=== PATIENT | female | born 1950 | race Caucasian/White ===

== ENCOUNTER 2019-06-15 20:00 | Emergency (ER) | payer MEDICARE, OTHER, SELFPAY ==
[2019-06-15 20:01] VITALS: BP 167/93; PULSE 90; RESP 18; TEMP 36.7; O2SAT 98; BMI 36.6
--- NOTE | 2019-06-15 20:21 | ED.DCSUM_ITS ---
- ER Visit Summary Date of Service: 06/15/19 Chief Complaint: Shortness of breath yesterday History of Present Illness: The patient is a 68 F past medical history of prior uterine cancer and a complete hysterectomy and cholecystectomy. She underwent chemoradiation that was about 5 to 6 years ago. Has done well since. States that she wore a mask to go to an area store yesterday. [place] a little short of breath after walking through the store with her mask on. Said she has had no recent exertional dyspnea or exertional chest pain. She might of had some mild chest discomfort yesterday. Described as a burning. No radiation to her arm neck or jaw. No diaphoresis. No history of DVT or PE. No recent travel, surgery or immobilization. No leg pain or swelling. No hemoptysis. Physical Examination: Older female no acute distress. Vital signs are stable and afebrile. Her pulse ox is 90% on room air no signs hypoxia. H EENT exam normal. Neck nontender. No JVD. No lymphadenopathy. Lungs clear to auscultation bilaterally. Heart regular rate and rhythm no murmur rate about 85. Abdomen soft nontender. Patient is moving all 4 extremities. Has a brisk radial pulse. Calves are nontender without edema or cords. Back nontender. Neurologically she is awake and alert with no focal motor deficits. Test Results: CBC normal. Chemistry normal. Troponin normal. Chest x-ray portable 1 view read by myself shows no acute abnormality. Normal cardiac silhouette. No infiltrate. No fluid. EKG normal sinus rhythm rate 84 with no acute signs of DE or ischemia. No dysrhythmia. Repeat exam patient is doing well at 9:28 PM. She has no complaints. We went over all of her test. She is comfortable being discharged and will follow-up with her primary care physician. Return if worse. Emergency Department Course and Treatment: Older female with brief shortness of breath yesterday. No exertional chest pain or exertional dyspnea recently. No fever or chills. Exam is normal. Treatment Plan: Outpatient follow-up or return if worse. Disposition: Discharge Impression: Acute dyspnea of uncertain etiology This note was generated with [employer] software. It may contain incorrect words, spelling, and punctuation that were not noted in review of the chart prior to signing ED Disposition - Plan for ED Patient: Referrals: Raymond Kurtz III, MD [Primary Care Provider] -
--- NOTE | 2019-06-15 20:21 | EKG12_ITS ---
Test Reason : SOB Blood Pressure : / mmHG Vent. Rate : 084 BPM Atrial Rate : 084 BPM P-R Int : 164 ms QRS Dur : 078 ms QT Int : 384 ms P-R-T Axes : 046 -14 036 degrees QTc Int : 453 ms Normal sinus rhythm Normal ECG Confirmed by JIM LAWLER, JORDI ([id number]), slot editor GABY FUENTES ([id number]) on 06/20/2019 2:16:22 PM Referred By: FRANCINE Confirmed By:MARIA DE JESUS FERNANDEZ MD
--- NOTE | 2019-06-15 20:45 | RAD_ITS ---
STUDY: X-RAY CHEST REASON FOR EXAM: Female, 68 years old. COUGH, SOB, AND TIRED SINCE YESTERDAY -- HX OF ENDOMETRIAL CANCER TECHNIQUE: Single frontal view of the chest. COMPARISON: July 07, 2013 FINDINGS: There is no new focal consolidation. Normal size heart. Normal mediastinum and bryan. Normal visualized pulmonary arteries. Normal visualized aortic arch and descending thoracic aorta. Normal visualized thoracic spine. Normal visualized ribs, clavicles, and shoulders. There is no demonstrated abnormality of the visualized soft tissue structures of the upper abdomen. RAD/Chest 1 View (Portable) IMPRESSION: No acute cardiopulmonary process. Electronically Signed: Jacqueline Pierce MD at 21:15 EDT Tel , Service support ,
[2019-06-15 20:46] LABS: Absolute Lymphocyte Count 0.87 X10^3/uL (0.83-4.51); Absolute Neutrophil Count 4.9 X10^3/uL (2.0-7.7); Basophil# 0.02 X10^3/uL; Basophil% 0.3 % (0-1); Eosinophil# 0.09 X10^3/uL; Eosinophils% 1.4 % (0-5); Hematocrit 39.6 % (37-47); Hemoglobin 13.3 g/dL (12.0-15.0); Lymphocyte # 0.87 X10^3/ul (4.0); Lymphocyte % 13.8 % (19-41); Mean Corp Hgb Conc 33.6 g/dL (32-36); Mean Corpuscular Hgb 29.2 pg (27.0-32.0); Mean Platelet Vol. 8.9 fl (6.2-12.0); Monocyte# 0.41 X10^3/uL; Monocyte% 6.5 % (0-10); NRBC Flagged by Analyzer 0 % (0-5); Neutrophil # 4.91 X10^3/uL (2.7-7.7); Neutrophil % 77.7 % (47-70); Platelet Count 253 K/mm3 (150-450); RBC Distribution Width CV 13.5 % (11.6-14.6); RBC Distribution Width SD 42.4 fl (35.1-43.9); Red Blood Count 4.55 M/mm3 (4.2-5.4); White Blood Count 6.3 K/mm3 (4.4-11.0)
[2019-06-15 20:47] VITALS: O2SAT 96
[2019-06-15 21:05] LABS: Anion Gap 7 (5-15); BUN 13 mg/dL (7-18); BUN/Creat Ratio 14.7 RATIO (10-20); Calcium,Total 9.3 mg/dL (8.5-10.1); Chloride 103 mmol/L (98-107); Creatinine, Serum 0.88 mg/dL (0.55-1.02); EST Glomerular Filtration Rate 68 mL/min (>60); Est Glom Filt Rate - Afr Amer 82 mL/min (>60); Estimated Creatinine Clearance 49.06 ml/min; Glucose 106 mg/dL (74-106); Potassium 3.6 mmol/L (3.5-5.1); Sodium Level 139 mmol/L (136-145)
--- NOTE | 2019-06-15 21:30 | ED.DEP ---
ED Disposition - Plan for ED Patient: Disposition: Home or Assisted Living Instructions: ED Dyspnea Referrals: Raymond Kurtz III, MD [Primary Care Provider] - 1 Week Additional Instructions: Return if you are feeling worse. All your tests were normal including blood work, blood count, chemistries, heart enzymes. Also your chest x-ray and EKG were normal. Follow-up with your primary care physician if you still have symptoms of shortness of breath or not feeling your baseline.
[2019-06-15 21:43] VITALS: BP 145/81; PULSE 78; RESP 16; O2SAT 96
== END 2019-06-15 21:43 | disposition home or self-care (01) ==
PROVIDERS: Emergency Provider Emergency Medicine; PCP Family Medicine
DX: R06.00 Dyspnea, unspecified (principal); Z85.42 Personal history of malignant neoplasm of other parts of uterus
CPT/HCPCS: 71045; 80048; 84484; 85025; 93005; 99284

== ENCOUNTER → 2020-08-01 11:57 | Outpatient (CLI) | payer MEDICARE, OTHER, SELFPAY ==
[2020-08-01 11:00] VITALS: BMI 37.5
[2020-08-01 12:37] LABS: Absolute Neutrophil Count 3.6 X10^3/uL (2.0-7.7); Basophil# 0.04 X10^3/uL; Basophil% 0.8 % (0-1); Eosinophil# 0.12 X10^3/uL; Eosinophils% 2.5 % (0-5); Lymphocyte % 16.4 % (19-41); Mean Corp Hgb Conc 33.3 g/dL (32-36); Mean Corpuscular Volume 86.9 fL (81-99); Monocyte% 6.1 % (0-10); NRBC Flagged by Analyzer 0 % (0-5); Neutrophil % 73.8 % (47-70); Platelet Count 257 K/mm3 (150-450); RBC Distribution Width CV 13.8 % (11.6-14.6); RBC Distribution Width SD 43.7 fl (35.1-43.9); Red Blood Count 4.49 M/mm3 (4.2-5.4); White Blood Count 4.9 K/mm3 (4.4-11.0)
[2020-08-01 13:10] LABS: ALB/GLOB Ratio 1.2 RATIO (0.9-2.4); AST(SGOT) 28 U/L (15-37); Alanine Aminotransfer ALT/SGPT 41 U/L (13-56); Alkaline Phosphatase 71 U/L (45-117); Anion Gap 6 (5-15); BUN 17 mg/dL (7-18); BUN/Creat Ratio 18.7 RATIO (10-20); Bilirubin, Direct 0.14 mg/dL (0.00-0.30); Calcium,Total 9.1 mg/dL (8.5-10.1); Chloride 104 mmol/L (98-107); Cholesterol 227 mg/dL (200); Creatinine, Serum 0.91 mg/dL (0.55-1.02); EST Glomerular Filtration Rate 65 mL/min (>60); Est Glom Filt Rate - Afr Amer 79 mL/min (>60); Globulin 3.2 g/dL (2.2-4.2); Glucose 101 mg/dL (74-106); High Density Lipoprotein 64 mg/dL; Magnesium 2.2 mg/dL (1.6-2.6); Potassium 3.9 mmol/L (3.5-5.1); Protein, Total 7.2 g/dL (6.4-8.2); Sodium Level 140 mmol/L (136-145); Thyroid Stim Hormone (TSH) 2.48 uIU/mL (0.358-3.74); Triglycerides 121 mg/dL; Very Low Density Lipoprotein 24 mg/dL (5-40)
== END ==
PROVIDERS: PCP Family Medicine; Referring Provider Internal Medicine Cardiovascular Disease; Visit Provider Internal Medicine Cardiovascular Disease
DX: C54.1 Malignant neoplasm of endometrium (principal); I49.1 Atrial premature depolarization; I49.3 Ventricular premature depolarization; R07.9 Chest pain, unspecified
CPT/HCPCS: 36415; 80053; 80061; 82248; 83735; 84443; 85025

== ENCOUNTER → 2020-09-03 07:14 | Outpatient (CLI) | payer MEDICARE, OTHER, SELFPAY ==
[2020-08-01 11:00] VITALS: BMI 37.5
--- NOTE | 2020-09-03 07:16 | ECHOD_ITS ---
Reason For Study: AFIB, CHEST PAIN Procedure This was a 2D Doppler, Color Flow transthoracic echocardiogram. The study was technically difficult. Exam performed in department. Left Ventricle Normal LV size. Left ventricular systolic function is normal. The estimated ejection fraction is 55 %. No evidence for diastolic dysfunction. No regional wall motion abnormalities noted. Right Ventricle Normal RV size. Normal systolic function. Atria Normal left atrium. Normal right atrium. No doppler evidence for ASD. Mitral Valve There is no mitral annular calcification. Normal mitral valve. Trivial mitral valve insufficiency. Tricuspid Valve Normal tricuspid valve. Trivial tricuspid valve insufficiency. Right ventricular systolic pressure estimated to be 29 mmHg. Aortic Valve Trisinus/trileaflet aortic valve. Normal aortic valve. Pulmonic Valve The pulmonic valve is not well visualized. Trivial pulmonic valve insufficiency. Great Vessels Normal sized aortic root. Pericardium/Pleural No pericardial effusion. MMode/2D Measurements & Calculations LVIDd: 4.3 cm IVSd: 0.95 cm Ao root diam: 3.4 cm LVIDs: 2.8 cm LVPWd: 0.94 cm FS: 36.3 % LAV(MOD-bp): 37.9 ml LVAd ap4: 20.8 cm2 LVAd ap2: 25.8 cm2 LAV(MOD-bp) Indexed: 19.8 ml/m2 LVLd ap4: 7.2 cm LVLd ap2: 8.2 cm LAV(MOD-sp2): 37.4 ml EDV(MOD-sp4): 48.8 ml EDV(MOD-sp2): 67.2 ml LAV(MOD-sp4): 36.7 ml EDV(sp4-el): 50.7 ml EDV(sp2-el): 68.6 ml LVAs ap4: 13.5 cm2 LVAs ap2: 14.5 cm2 LVLs ap4: 6.2 cm LVLs ap2: 6.6 cm ESV(MOD-sp4): 24.6 ml ESV(MOD-sp2): 27.5 ml ESV(sp4-el): 25.0 ml ESV(sp2-el): 27.2 ml EF(MOD-sp4): 49.5 % EF(MOD-sp2): 59.1 % EF(sp4-el): 50.7 % SV(MOD-sp4): 24.1 ml SV(MOD-sp2): 39.7 ml SV(sp4-el): 25.7 ml LA dimension(2D): 2.9 cm LA A4 area: 14.8 cm2 RA A4 area: 9.8 cm2 Time Measurements MV dec time: 0.32 sec Doppler Measurements & Calculations MV E max efren: 75.6 cm/sec Lat Peak E' Efren: 8.5 cm/sec Med Peak E' Efren: 6.5 cm/sec MV A max efren: 109.6 cm/sec E/E' lat: 8.9 E/E' med: 11.6 MV E/A: 0.69 Ao V2 max: 121.4 cm/sec LV V1 max: 100.0 cm/sec TR max efren: 253.0 cm/sec Ao max P.9 mmHg LV V1 max P.0 mmHg TR max P.6 mmHg ECHO/Echo Complete Interpretation Summary The study was technically difficult. Left ventricular systolic function is normal. The estimated ejection fraction is 55 %. Trivial mitral valve insufficiency. Trivial tricuspid valve insufficiency. Trivial pulmonic valve insufficiency. Right ventricular systolic pressure estimated to be 29 mmHg. No evidence for diastolic dysfunction. Ordering Physician: Scotty Grant Referring Physician: RIZWANA MARY III Performed By: June Marcano, RDHOLLIE, RVT
--- NOTE | 2020-09-03 13:14 | STRESSREP ---
Stress Test Report Date: 09-03-2020 Procedure: Pharmacologic stress nuclear imaging study Indications: Chest pain; cardiac ectopy; PACs/PVCs Consent: Per the patient Procedure: The patient underwent pharmacologic (Regadenoson 0.4mg ) evaluation with a peak heart rate of 130 beats per minute (85%predicted maximal heart rate) and a peak blood pressure of 148/90 mmHg. The baseline ECG demonstrated sinus rhythm; low voltage QRS; ventricular couplet. The peak pharmacologic ECG demonstrated no obvious ECG changes. There were occasional PVCs/ventricular couplets pretest, during infusion, and recovery. There was no complaint of chest discomfort during pharmacologic infusion or recovery. The examination was discontinued secondary to completion of protocol. Impression: 1. Pharmacologic (Regadenoson) evaluation 2. Peak pharmacologic ECG with no obvious ECG changes. 3. There were no cardiac dysrhythmias pretest, during pharmacologic infusion, or recovery. 4. Nuclear images pending Myocardial perfusion imaging study: Technique: The patient was injected with 14.0 millicuries of technetium 99m Cardiolite and subsequently rest SPECT Cardiolite nuclear imaging was obtained in the horizontal long, vertical long, and short axis views. The patient underwent pharmacologic (Regadenoson) evaluation with a peak heart rate of 130 beats per minute (85% percent predicted maximal heart rate) and a peak blood pressure of 148/9 mmHg. The patient was injected with 42.0 millicuries of technetium 99m Cardiolite and subsequently stress SPECT Cardiolite nuclear imaging was obtained in the horizontal long, vertical long, and short axis views. A gated Cardiolite study at peak stress was obtained. Interpretation: Rest and stress SPECT Cardiolite nuclear imaging status post realignment, normalization, and attenuation correction demonstrate the appearance of body motion during image acquisition and status post stress the appearance of diminished myocardial perfusion/tracer uptake in portions of the basal towards distal anterior segments. There is end systolic thickening and brightening. The gated Cardiolite study demonstrates myocardial thickening and inward wall motion. The reported LVEF is 66%. Impression: 1. Rest and stress SPECT cardiac nuclear imaging demonstrate body motion during image acquisition and post-rest myocardial perfusion images demonstrating diminished myocardial perfusion/tracer uptake in portions of the basal towards distal anterior segments concerning for an area of stress-induced myocardial ischemia, although, shifting soft tissue attenuation/artifact from body motion during image acquisition cannot necessarily be excluded. 2. The gated Cardiolite study reports an LVEF of 66%. This note was generated with [employer] software. It may contain incorrect words, spelling, and punctuation that were not noted in checking the note before signing.
== END ==
PROVIDERS: PCP Family Medicine; Referring Provider Internal Medicine Cardiovascular Disease; Visit Provider Internal Medicine Cardiovascular Disease
DX: I49.3 Ventricular premature depolarization (principal); I49.1 Atrial premature depolarization; R07.9 Chest pain, unspecified; R07.2 Precordial pain; R94.31 Abnormal electrocardiogram [ECG] [EKG]
CPT/HCPCS: 78452; 93017; 93225; 93226; 93306; A9500; A4216; J2785

== ENCOUNTER 2020-12-03 09:35 | Emergency (ER) | payer MEDICARE, OTHER, SELFPAY ==
[2020-12-03 09:36] VITALS: BP 144/85; PULSE 91; RESP 24; TEMP 36.9; O2SAT 89; BMI 34.4
--- NOTE | 2020-12-03 09:50 | EKG12_ITS ---
Test Reason : SOB Blood Pressure : / mmHG Vent. Rate : 082 BPM Atrial Rate : 082 BPM P-R Int : 158 ms QRS Dur : 078 ms QT Int : 394 ms P-R-T Axes : 024 -17 046 degrees QTc Int : 460 ms Sinus rhythm with marked sinus arrhythmia with occasional Premature ventricular complexes Otherwise normal ECG Confirmed by VIJAYA LAWLER, JERAD ([id number]), news assignment editor LAURA MERIDA ([id number]) on 12/06/2020 10:03:48 AM Referred By: ETHAN Confirmed By:JERAD LILLY MD
--- NOTE | 2020-12-03 09:50 | RAD_ITS ---
STUDY: X-RAY CHEST REASON FOR EXAM: Female, 70 years old. Shortness of breath. TECHNIQUE: Single AP portable view of the chest. COMPARISON: Comparison is made with prior study dated 06/15/2019. FINDINGS: EKG electrodes are seen. Patchy alveolar infiltrates in both lung bases in the parapharyngeal peripheral distribution. This is suggestive of Covid pneumonitis. There is no demonstrated pleural abnormality. Normal size heart. Normal mediastinum and bryan. Normal visualized pulmonary arteries. Normal visualized aortic arch and descending thoracic aorta. Normal visualized thoracic spine. Normal visualized ribs, clavicles, and shoulders. There is no demonstrated abnormality of the visualized soft tissue structures of the upper abdomen. RAD/Chest 1 View (Portable) IMPRESSION: Patchy bilateral alveolar infiltrates in the preferential peripheral distribution. Pneumonitis secondary to Covid should be ruled out. Electronically Signed: Cesar Art MD at 11:18 EDT , Service support ,
--- NOTE | 2020-12-03 09:51 | EDS_ITS ---
HPI History of Present Illness Chief Complaint: Shortness of Breath Informant: patient Onset/Context/Timing Onset: Weeks (1 week) Context: Gradual Onset Timing: Waxes and wanes Current Severity: Moderate Maximum Severity: Moderate Narrative Narrative: Patient presents with 1 week of nausea, vomiting, headache, body ach es, cough. Patient does report intermittent fevers. Her granddaughter who lives with her does have Covid. Patient did not receive the Covid vaccine. She complains of chest pain which she believes is secondary to coughing. No underlying lung disease. [facility] Medical History Abnormal stress test Chest pain Endometrial cancer PAC (premature atrial contraction) Premature ventricular contraction Pure hypercholesterolemia Home Medications cyanocobalamin (vitamin B-12) 1,000 mcg/15 mL oral liquid 1,000 mcg PO DAILY 07/30/20 [History Last Taken Unknown] garlic 1,000 mg capsule 1,000 mg PO DAILY PRN cap 07/30/20 [History Last Taken Unknown] multivitamin 1 tab PO DAILY 07/30/20 [History Last Taken Unknown] coenzyme Q10 100 mg capsule 100 mg PO DAILY 08/01/20 [History Last Taken Unknown] ascorbate calcium-bioflavonoid 1,000 mg-200 mg tablet tab PO PRN 09/12/20 [History Last Taken Unknown] aspirin 81 mg tablet,delayed release 81 mg PO DAILY 09/12/20 [History Last Taken Unknown] dexamethasone [Decadron] 6 mg PO DAILY #9 tab 12/03/20 [Rx Last Taken Unknown] ondansetron 4 mg PO Q8H PRN #10 tab 12/03/20 [Rx Last Taken Unknown] Allergy/AdvReac Type Severity Reaction Status Date / Time ciprofloxacin [From Cipro] Allergy Intermediate Other Verified 12/03/20 09:40 diazepam [From Valium] AdvReac Other Verified 12/03/20 09:40 Family History Father CVA (cerebral vascular accident) Heart disease Grandfather Myocardial infarction Heart disease Diabetes Sister Cancer Breast Cancer Surgical History History of bilateral cataract extraction History of cholecystectomy History of total hysterectomy History of tubal ligation Social History Smoking Status: Never smoker alcohol intake: never substance use type: does not use caffeine: Yes Type: coffee Number of servings: 2 ROS ROS ED Constitutional Constitutional ED: Reports chills and fever(s) Eyes Eyes: Denies change in vision ENT ENT ED: Denies sore throat Cardiovascular Cardiovascular: Reports chest pain Respiratory/Chest Respiratory/Chest: Reports cough and dyspnea; Denies sputum Gastrointestinal Gastrointestinal: Reports nausea and vomiting; Denies abdominal pain or diarrhea Genitourinary Genitourinary ED: Denies dysuria Musculoskeletal Musculoskeletal: Reports myalgias; Denies back pain Integumentary Denies rash Neurologic Neurologic: Reports headache(s) and weakness Psychiatric Psychiatric: Denies anxiety or depression Endocrine Endocrinology: Reports polydipsia; Denies polyuria Allergic/Immunologic Allergic/Immunologic ED: Denies urticaria EXAM Physical Exam Const Vital Signs: 12/03/20 09:36 12/03/20 10:07 12/03/20 10:08 Temperature 98.5 F 98.5 F Temperature Source Oral Oral Pulse Rate 91 91 Respiratory Rate 24 H 24 H Respiratory Effort Short of Breath Labored Blood Pressure 144/85 H 144/85 H Blood Pressure Mean 104 104 Pulse Ox 89 89 Oxygen Delivery Method Room Air Room Air 12/03/20 11:28 Temperature Temperature Source Pulse Rate Respiratory Rate Respiratory Effort Blood Pressure Blood Pressure Mean Pulse Ox 90 Oxygen Delivery Method Room Air Positive well nourished and well developed General Appearance ED: well developed HEENT Reports normocephalic and head/scalp atraumatic Eyes PERRL and EOMs intact bilaterally Neck supple Chest Wall inspection of chest normal and palpation of chest normal Resp normal respiratory effort and clear to auscultation bilaterally Cardio regular rate and regular rhythm GI normal to inspection, nondistended, normoactive bowel sounds and non-tender Palpation: soft Extremity normal to inspection Neuro oriented x3 Neuro Narrative: Generalized weakness. No focal neurologic deficits. Sensorium / Orientation: alert Psych mental status grossly normal Skin no rashes or lesions noted MDM MDM MDM Narrative Medical decision making narrative: Lab work, EKG, chest x-ray, Covid test obtained. Lab Data Attestation: I reviewed the patient's lab results. Labs: Laboratory Results - last 24 hr 12/03/20 12/03/20 12/03/20 10:25 10:25 10:25 WBC 4.3 L RBC 4.55 Hgb 13.1 Hct 37.3 MCV 82.0 MCH 28.8 MCHC 35.1 RDW Std Deviation 42.3 RDW Coeff of Thomas 14.1 Plt Count 201 MPV 9.1 Immature Gran % (Auto) 0.700 Neut % (Auto) 85.6 H Lymph % (Auto) 7.9 L [place] % (Auto) 5.8 Eos % (Auto) 0.0 Baso % (Auto) 0.0 Absolute Neuts (auto) 3.7 Absolute Lymphs (auto) 0.34 L Nucleated RBC % 0 Differential Comment COMMENT Diff Path Review May foll D-Dimer Quant (PE/DVT) Sodium 132 L Potassium 3.3 L Chloride 99 Carbon Dioxide 25.0 Anion Gap 8 BUN 13 Creatinine 0.74 Estim Creat Clear Calc 41.99 Est GFR (MDRD) Af Amer 101 Est GFR (MDRD) Non-Af 83 BUN/Creatinine Ratio 17.7 Glucose 112 H Lactic Acid 0.9 Calcium 8.4 L Total Bilirubin 0.50 AST 40 H ALT 43 Alkaline Phosphatase 70 Total Protein 7.0 Albumin 3.2 Globulin 3.8 Albumin/Globulin Ratio 0.8 L 12/03/20 10:25 WBC RBC Hgb Hct MCV MCH MCHC RDW Std Deviation RDW Coeff of Thomas Plt Count MPV Immature Gran % (Auto) Neut % (Auto) Lymph % (Auto) [place] % (Auto) Eos % (Auto) Baso % (Auto) Absolute Neuts (auto) Absolute Lymphs (auto) Nucleated RBC % Differential Comment Diff Path Review D-Dimer Quant (PE/DVT) 0.44 Sodium Potassium Chloride Carbon Dioxide Anion Gap BUN Creatinine Estim Creat Clear Calc Est GFR (MDRD) Af Amer Est GFR (MDRD) Non-Af BUN/Creatinine Ratio Glucose Lactic Acid Calcium Total Bilirubin AST ALT Alkaline Phosphatase Total Protein Albumin Globulin Albumin/Globulin Ratio Radiography Chest X-Ray - ED: 1 View, Read by ED Physician, Right Infiltrate and Left Infiltrate Diagnostic Testing: Radiology Impression Chest X-Ray 12/03/20 09:50 IMPRESSION: Patchy bilateral alveolar infiltrates in the preferential peripheral distribution. Pneumonitis secondary to Covid should be ruled out. Electronically Signed: Cesar Art MD at 11:18 EDT , Service support , EKG Initial EKG: Attestation: I personally reviewed and interpreted this EKG as follows: Interpretation: Sinus Rhythm (Sinus 82 with no acute ischemia) Treatment and Re-Evaluation Comments:: Although patient's O2 sat is documented to 89% in triage she was 93% at the time of my exam on room air. Lab work is largely unremarkable. Covid test is positive. Chest x-ray per my interpretation shows patchy bilateral infiltrates along the periphery consistent with Covid. Radiologist rotation is reviewed. On repeat evaluation patient does feel improved after a small IV fluid bolus and Zofran. She will be treated with Decadron. We did walk her in the department and her O2 sat went from 95 to 91%. At this time she does not qualify for home O2. We did discuss obtaining a pulse ox meter so she can observe this at home. She will be given a prescription for Decadron and Zofran. Discharge Plan Triage Chief Complaint: Shortness of Breath ED Provider: Celia Bateman Dx/Rx/DC Orders Clinical Impression: COVID-19 Instructions: Coronavirus Disease 2019 (COVID-19): Overview, Coronavirus Disease 2019 (COVID-19): Caring for Yourself or Others Prescriptions: New ondansetron 4 mg tablet,disintegrating 4 mg PO Q8H PRN (Reason: nausea and vomiting) Qty: 10 RF: 0 dexamethasone [Decadron] 6 mg tablet 6 mg PO DAILY Qty: 9 RF: 0 No Action coenzyme Q10 100 mg capsule 100 mg PO DAILY RF: 0 Mag-C with Bioflavonoids 1,000-200 mg tablet PO PRNRF: 0 aspirin [Adult Aspirin Regimen] 81 mg tablet,delayed release (DR/EC) 81 mg PO DAILY RF: 0 cyanocobalamin (vitamin B-12) 1,000 mcg/15 mL liquid 1,000 mcg PO DAILY RF: 0 garlic 1,000 mg capsule 1,000 mg PO DAILY PRNRF: 0 multivitamin Tablet 1 tab PO DAILY RF: 0 Primary Care Provider: Care Physician,No Primary Referrals: Franco Sue MD [STAFF PHYSICIAN] - 1-2 Weeks Care Physician,No Primary [Primary Care Provider] - Disposition Disposition: Home, Self Care
[2020-12-03 10:08] VITALS: BP 144/85; PULSE 91; RESP 24; TEMP 36.9; O2SAT 89
[2020-12-03] MEDS: Ondansetron 4 MG/2 ML Vial IV (10:26)
[2020-12-03] MEDS: Ketorolac 15 MG/ML Vial IV (10:26)
[2020-12-03 10:53] LABS: Absolute Lymphocyte Count 0.34 X10^3/uL (0.83-4.51); Absolute Neutrophil Count 3.7 X10^3/uL (2.0-7.7); Hematocrit 37.3 % (37-47); Hemoglobin 13.1 g/dL (12.0-15.0); Lymphocyte # 0.34 X10^3/ul (0.83-4.51); Lymphocyte % 7.9 % (19-41); Mean Corp Hgb Conc 35.1 g/dL (32-36); Mean Corpuscular Hgb 28.8 pg (27.0-32.0); Mean Platelet Vol. 9.1 fl (6.2-12.0); Monocyte# 0.25 X10^3/uL; Monocyte% 5.8 % (0-10); NRBC Flagged by Analyzer 0 % (0-5); Neutrophil # 3.71 X10^3/uL (2.7-7.7); Neutrophil % 85.6 % (47-70); POSITIVE DIFFERENTIAL YES; Platelet Count 201 K/mm3 (150-450); RBC Distribution Width CV 14.1 % (11.6-14.6); RBC Distribution Width SD 42.3 fl (35.1-43.9); Red Blood Count 4.55 M/mm3 (4.2-5.4); White Blood Count 4.3 K/mm3 (4.4-11.0)
[2020-12-03 10:54] LABS: D-Dimer Quantitative (DVT/PE) 0.44 FEU/ug/m (0.27-0.49)
[2020-12-03 10:55] LABS: Differential Indicated SCAN CRITERIA MET
[2020-12-03 11:10] LABS: ALB/GLOB Ratio 0.8 RATIO (0.9-2.4); AST(SGOT) 40 U/L (15-37); Alanine Aminotransfer ALT/SGPT 43 U/L (13-56); Albumin, Serum 3.2 g/dL (3.2-5.0); Alkaline Phosphatase 70 U/L (45-117); Anion Gap 8 (5-15); BUN 13 mg/dL (7-18); BUN/Creat Ratio 17.7 RATIO (10-20); Calcium,Total 8.4 mg/dL (8.5-10.1); Chloride 99 mmol/L (98-107); Creatinine, Serum 0.74 mg/dL (0.55-1.02); EST Glomerular Filtration Rate 83 mL/min (>60); Est Glom Filt Rate - Afr Amer 101 mL/min (>60); Estimated Creatinine Clearance 41.99 ml/min; Globulin 3.8 g/dL (2.2-4.2); Glucose 112 mg/dL (74-106); Potassium 3.3 mmol/L (3.5-5.1); Sodium Level 132 mmol/L (136-145)
[2020-12-03 11:17] LABS: Lactic Acid 0.9 mmol/L (0.4-1.9)
[2020-12-03 11:28] VITALS: O2SAT 90
[2020-12-03] MEDS: dexAMETHasone 4 MG/ML Vial 6 MG IV (11:32)
[2020-12-03 11:35] VITALS: O2SAT 95
[2020-12-03 12:09] VITALS: BP 128/72; PULSE 71; RESP 18; O2SAT 93
--- NOTE | 2020-12-03 15:12 | CHAPLAIN ---
Type of Pastoral Visit _x__ Initial Visit ___ Follow-up Visit ___ On-call Visit ___ General Patient Visit ___ Spiritual Assessment ___ Family Conference ___ Bereavement ___ Rapid Response ___ Code Blue ___ Other (describe below) Pastoral Care Referral From _x__ Patient ___ Family ___ Nurse ___ Physician ___ Netting Weaver ___ Aviation Electronics Technician ___ Other (describe below) Sacrament/Intervention _x__ Active listening ___ Anointing ___ Druze ___ Bereavement ___ Communion ___ Shari exploration ___ ___ Life review _x__ Prayer ___ Reconciliation ___ Sacrament of Sick _x__ Supportive presence ___ Wedding ___ Other (describe below) Pastoral Comments 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
[2020-12-04 12:46] LABS: Pathologist Review Reviewed
== END 2020-12-03 12:10 | disposition home or self-care (01) ==
PROVIDERS: Emergency Provider Emergency Medicine
DX: U07.1 COVID-19 (principal)
CPT/HCPCS: 71045; 80053; 83605; 85025; 85379; 87040; 87426; 93005; 96374; 96375; 99285; J7030; A4216; J2405

== ENCOUNTER 2020-12-06 10:13 | Inpatient (IN) | payer MEDICARE, OTHER, SELFPAY ==
[2020-12-06] VITALS (11 sets, daily range): BP systolic 108–153; BP diastolic 62–84; PULSE 69–94; RESP 18–26; TEMP 36.2–37.2; O2SAT 87–96; BMI 34.9; BMI 35.3
--- NOTE | 2020-12-06 10:57 | EKG12_ITS ---
Test Reason : SOB Blood Pressure : / mmHG Vent. Rate : 087 BPM Atrial Rate : 087 BPM P-R Int : 146 ms QRS Dur : 076 ms QT Int : 376 ms P-R-T Axes : 026 -08 036 degrees QTc Int : 452 ms Normal sinus rhythm Normal ECG Confirmed by VIJAYA LAWLER, JERAD ([id number]), editor in chief newspaper LAURA MERIDA ([id number]) on 12/09/2020 11:41:11 AM Referred By: AMADA/AVINASH Confirmed By:JERAD LILLY MD
--- NOTE | 2020-12-06 10:59 | ED.VIS.DYS ---
HPI History of Present Illness Chief Complaint: Shortness of Breath Informant: patient Onset/Context/Timing Onset: Weeks (1) Context: gradual Timing: Continuous Quality: Positive for Dyspnea on exertion Worsened by: Exertion Relieved by: Rest Associated Symptoms cough, fever, sore throat, subjective and chills; Negative for rhinorrhea or ear pain Narrative Narrative: Patient presents with shortness of breath that has been getting worse over the past week. Patient was diagnosed with COVID-19 approximately 3 days ago. Patient states her breathing is gradually getting worse. Patient states her breathing is worse with any exertion. Patient states it is better with rest. Patient states she is coughing up some white sputum occasionally. Patient also admits to a sore throat due to the cough. Patient admits to subjective fevers and chills. Patient also admits to some dull pain in her lower chest that is worse with coughing. Patient also admits to headache and myalgias. Patient admits to nausea but denies any vomiting. [facility] Medical History Abnormal stress test Chest pain Endometrial cancer PAC (premature atrial contraction) Premature ventricular contraction Pure hypercholesterolemia Home Medications cyanocobalamin (vitamin B-12) 1,000 mcg/15 mL oral liquid 1,000 mcg PO DAILY 07/30/20 [History Last Taken Unknown] garlic 1,000 mg capsule 1,000 mg PO DAILY cap 07/30/20 [History Last Taken Unknown] multivitamin 1 tab PO DAILY 07/30/20 [History Last Taken Unknown] coenzyme Q10 100 mg capsule 100 mg PO DAILY 08/01/20 [History Last Taken Unknown] ascorbate calcium-bioflavonoid 1,000 mg-200 mg tablet 1 tab PO DAILY 09/12/20 [History Last Taken Unknown] dexamethasone [Decadron] 6 mg PO DAILY #9 tab 12/03/20 [Rx Last Taken Unknown] ondansetron 4 mg PO Q8H PRN #10 tab 12/03/20 [Rx Last Taken Unknown] Allergy/AdvReac Type Severity Reaction Status Date / Time ciprofloxacin [From Cipro] Allergy Intermediate Other Verified 12/06/20 10:15 diazepam [From Valium] AdvReac Other Verified 12/06/20 10:15 Family History Father CVA (cerebral vascular accident) Heart disease Grandfather Myocardial infarction Heart disease Diabetes Sister Cancer Breast Cancer Surgical History History of bilateral cataract extraction History of cholecystectomy History of total hysterectomy History of tubal ligation Social History Smoking Status: Never smoker alcohol intake: never substance use type: does not use caffeine: Yes Type: coffee Number of servings: 2 ROS ROS ED Constitutional Constitutional ED: Reports chills and fever(s) Eyes Eyes: Denies blurry vision or change in vision ENT ENT ED: Denies rhinorrhea or sore throat Cardiovascular Cardiovascular: Reports chest pain; Denies palpitations Respiratory/Chest Respiratory/Chest: Reports cough and dyspnea Gastrointestinal Gastrointestinal: Denies nausea or vomiting Genitourinary Genitourinary ED: Denies dysuria or hematuria Musculoskeletal Musculoskeletal: Reports back pain, myalgias and neck pain Integumentary Denies abscess or rash Neurologic Neurologic: Reports headache(s); Denies weakness Allergic/Immunologic Allergic/Immunologic ED: Denies mouth swelling or urticaria EXAM Physical Exam Const Vital Signs: 12/06/20 10:16 12/06/20 10:27 12/06/20 11:03 Temperature 99 F 99.0 F Temperature Source Temporal Temporal Pulse Rate 87 93 87 Respiratory Rate 22 H 22 H 26 H Respiratory Effort Respiratory Depth Respiratory Pattern Blood Pressure 131/79 H 131/79 H Blood Pressure Mean 96 96 Pulse Ox 93 96 96 Oxygen Delivery Method Room Air Nasal Cannula Nasal Cannula Oxygen Flow Rate (L/min) 4 3 12/06/20 11:04 12/06/20 12:15 12/06/20 12:42 Temperature 97.8 F Temperature Source Oral Pulse Rate 94 Respiratory Rate 25 H Respiratory Effort Short of Breath Labored Respiratory Depth Normal Respiratory Pattern Tachypnea Blood Pressure 108/62 Blood Pressure Mean 77 Pulse Ox 94 96 Oxygen Delivery Method Nasal Cannula Nasal Cannula Nasal Cannula Oxygen Flow Rate (L/min) 3 3 4 Positive well nourished and well developed General Appearance ED: well developed HEENT Reports moist mucous membranes Neck supple and no JVD Resp normal respiratory effort Auscultation: diminished lung sounds diffuse Cardio regular rate, regular rhythm and no murmurs GI normal to inspection, nondistended, normoactive bowel sounds and non-tender Palpation: soft Extremity normal to inspection General Extremety ED: Negative for edema or tenderness General Extremity: Negative for edema Neuro oriented x3, CN's II-XII intact bilaterally and no sensory deficits noted Sensorium / Orientation: alert Motor Exam: strength 5/5 throughout Psych mental status grossly normal Skin no rashes or lesions noted MDM MDM MDM Narrative Medical decision making narrative: Patient was started on oxygen by nasal cannula. CBC and comprehensive metabolic profile were obtained and were essentially within normal limits. Lactate was normal. High-sensitivity troponin was normal. Portable 1 view chest x-ray was obtained. On my interpretation, lung martin show worsening lower lobe infiltrates, worse on the left. There is normal cardiac silhouette. Bony thorax is normal. Radiologist also interpreted the x-ray and agrees. Patient was given a dose of Decadron here. Case was discussed with the hospitalist. He will admit the patient to his service. Patient understood and was agreeable with the plan. All questions were answered. Lab Data Attestation: I reviewed the patient's lab results. Labs: Laboratory Results - last 24 hr 12/06/20 12/06/20 12/06/20 11:11 11:11 11:11 WBC 9.8 RBC 4.22 Hgb 12.2 Hct 34.6 L MCV 82.0 MCH 28.9 MCHC 35.3 RDW Std Deviation 41.7 RDW Coeff of Thomas 14.1 Plt Count 258 MPV 9.0 Immature Gran % (Auto) 0.600 Neut % (Auto) 93.8 H Lymph % (Auto) 3.[address] % (Auto) 2.1 Eos % (Auto) 0.0 Baso % (Auto) 0.1 Absolute Neuts (auto) 9.2 H Absolute Lymphs (auto) 0.33 L Nucleated RBC % 0 Differential Comment COMMENT Fibrinogen D-Dimer Quant (PE/DVT) Sodium 131 L Potassium 3.6 Chloride 97 L Carbon Dioxide 29.0 Anion Gap 5 BUN 14 Creatinine 0.72 Estim Creat Clear Calc 40.07 Est GFR (MDRD) Af Amer 103 Est GFR (MDRD) Non-Af 85 BUN/Creatinine Ratio 19.4 Glucose 133 H Lactic Acid 1.5 Calcium 8.7 Magnesium Total Bilirubin 0.70 AST 37 ALT 43 Alkaline Phosphatase 62 Lactate Dehydrogenase Total Creatine Kinase Troponin I High Sens 12 C-React Prot Ext Range Total Protein 6.6 Albumin 2.7 L Globulin 3.9 Albumin/Globulin Ratio 0.7 L Procalcitonin 12/06/20 12/06/20 12/06/20 11:11 11:11 11:11 WBC RBC Hgb Hct MCV MCH MCHC RDW Std Deviation RDW Coeff of Thomas Plt Count MPV Immature Gran % (Auto) Neut % (Auto) Lymph % (Auto) [place] % (Auto) Eos % (Auto) Baso % (Auto) Absolute Neuts (auto) Absolute Lymphs (auto) Nucleated RBC % Differential Comment Fibrinogen 665 H D-Dimer Quant (PE/DVT) 0.75 H* Sodium Potassium Chloride Carbon Dioxide Anion Gap BUN Creatinine Estim Creat Clear Calc Est GFR (MDRD) Af Amer Est GFR (MDRD) Non-Af BUN/Creatinine Ratio Glucose Lactic Acid Calcium Magnesium 1.9 Total Bilirubin AST ALT Alkaline Phosphatase Lactate Dehydrogenase 337 H Total Creatine Kinase 133 Troponin I High Sens C-React Prot Ext Range 86.10 H Total Protein Albumin Globulin Albumin/Globulin Ratio Procalcitonin 12/06/20 11:11 WBC RBC Hgb Hct MCV MCH MCHC RDW Std Deviation RDW Coeff of Thomas Plt Count MPV Immature Gran % (Auto) Neut % (Auto) Lymph % (Auto) [place] % (Auto) Eos % (Auto) Baso % (Auto) Absolute Neuts (auto) Absolute Lymphs (auto) Nucleated RBC % Differential Comment Fibrinogen D-Dimer Quant (PE/DVT) Sodium Potassium Chloride Carbon Dioxide Anion Gap BUN Creatinine Estim Creat Clear Calc Est GFR (MDRD) Af Amer Est GFR (MDRD) Non-Af BUN/Creatinine Ratio Glucose Lactic Acid Calcium Magnesium Total Bilirubin AST ALT Alkaline Phosphatase Lactate Dehydrogenase Total Creatine Kinase Troponin I High Sens C-React Prot Ext Range Total Protein Albumin Globulin Albumin/Globulin Ratio Procalcitonin 0.08 Radiography Chest X-Ray - ED: 1 View, Read by ED Physician, Read by Radiologist, Right Infiltrate and Left Infiltrate Diagnostic Testing: Radiology Impression Chest X-Ray 12/06/20 11:13 IMPRESSION: Progressive bilateral pulmonary infiltrates worse in the left lung. Electronically Signed: Cesar Art MD at 11:27 EDT , Service support , Treatment and Re-Evaluation Vital Sign Attestation:: Vital signs were reviewed prior to admission. They are stable. Discharge Plan Dx/Rx/DC Orders Clinical Impression: Pneumonia due to COVID-19 virus, Hypoxia Disposition Disposition: Acute Care Hospital [facility] Discharge Date/Time: 12/06/20 15:03
--- NOTE | 2020-12-06 11:13 | RAD_ITS ---
STUDY: X-RAY CHEST REASON FOR EXAM: Female, 70 years old. Cough. Covid. Shortness of breath. TECHNIQUE: Single AP portable view of the chest. COMPARISON: Comparison is made with prior study dated 12/03/2020. FINDINGS: EKG electrodes are seen. Since prior study, there has been progressive bilateral pulmonary infiltrates worse in the left lung. There is no demonstrated pleural abnormality. Normal size heart. Normal mediastinum and bryan. Normal visualized pulmonary arteries. Normal visualized aortic arch and descending thoracic aorta. Normal visualized thoracic spine. Normal visualized ribs, clavicles, and shoulders. There is no demonstrated abnormality of the visualized soft tissue structures of the upper abdomen. RAD/Chest 1 View (Portable) IMPRESSION: Progressive bilateral pulmonary infiltrates worse in the left lung. Electronically Signed: Cesar Art MD at 11:27 EDT , Service support ,
[2020-12-06 11:29] LABS: Absolute Lymphocyte Count 0.33 X10^3/uL (0.83-4.51); Absolute Neutrophil Count 9.2 X10^3/uL (2.0-7.7); Basophil# 0.01 X10^3/uL; Basophil% 0.1 % (0-1); Hematocrit 34.6 % (37-47); Hemoglobin 12.2 g/dL (12.0-15.0); Lymphocyte # 0.33 X10^3/ul (0.83-4.51); Lymphocyte % 3.4 % (19-41); Mean Corp Hgb Conc 35.3 g/dL (32-36); Mean Corpuscular Hgb 28.9 pg (27.0-32.0); Monocyte# 0.21 X10^3/uL; Monocyte% 2.1 % (0-10); NRBC Flagged by Analyzer 0 % (0-5); Neutrophil # 9.22 X10^3/uL (2.7-7.7); Neutrophil % 93.8 % (47-70); POSITIVE DIFFERENTIAL YES; Platelet Count 258 K/mm3 (150-450); RBC Distribution Width CV 14.1 % (11.6-14.6); RBC Distribution Width SD 41.7 fl (35.1-43.9); Red Blood Count 4.22 M/mm3 (4.2-5.4); White Blood Count 9.8 K/mm3 (4.4-11.0)
[2020-12-06 11:38] LABS: Differential Indicated SCAN CRITERIA MET
[2020-12-06] MEDS: Acetaminophen 500 MG Tablet 1000 MG PO (11:41)
[2020-12-06 11:43] LABS: ALB/GLOB Ratio 0.7 RATIO (0.9-2.4); AST(SGOT) 37 U/L (15-37); Alanine Aminotransfer ALT/SGPT 43 U/L (13-56); Albumin, Serum 2.7 g/dL (3.2-5.0); Alkaline Phosphatase 62 U/L (45-117); Anion Gap 5 (5-15); BUN 14 mg/dL (7-18); BUN/Creat Ratio 19.4 RATIO (10-20); Calcium,Total 8.7 mg/dL (8.5-10.1); Chloride 97 mmol/L (98-107); Creatinine, Serum 0.72 mg/dL (0.55-1.02); EST Glomerular Filtration Rate 85 mL/min (>60); Est Glom Filt Rate - Afr Amer 103 mL/min (>60); Estimated Creatinine Clearance 40.07 ml/min; Globulin 3.9 g/dL (2.2-4.2); Glucose 133 mg/dL (74-106); Potassium 3.6 mmol/L (3.5-5.1); Protein, Total 6.6 g/dL (6.4-8.2); Sodium Level 131 mmol/L (136-145); Troponin-I HS 12 pg/mL (3.0-54.0)
[2020-12-06 11:50] LABS: Lactic Acid 1.5 mmol/L (0.4-1.9)
[2020-12-06] MEDS: dexAMETHasone 4 MG/ML Vial 6 MG IV (12:56)
--- NOTE | 2020-12-06 14:13 | PCM.HP.STD ---
HPI - General General Date of Service: 12/06/20 HPI Narrative MALOU DARLING, is a 70 F who presents to ER with productive cough with whitish sputum, fever with chills, shortness of breath since 11/25/2020. She was diagnosed COVID-19 approximately 3 days ago. Patient symptoms are progressively worsening with more shortness of breath. Complain of dyspnea on exertion, generalized body aches and feeling lethargic. She also had vomiting 1 or 2 times for last 3 days. Patient has granddaughter who also has Covid positive. Complain of mild chest pain on coughing up along with sore throat. [facility] Medical History Abnormal stress test Chest pain Endometrial cancer PAC (premature atrial contraction) Premature ventricular contraction Pure hypercholesterolemia Home Medications cyanocobalamin (vitamin B-12) 1,000 mcg/15 mL oral liquid 1,000 mcg PO DAILY 07/30/20 [History Last Taken Unknown] garlic 1,000 mg capsule 1,000 mg PO DAILY cap 07/30/20 [History Last Taken Unknown] multivitamin 1 tab PO DAILY 07/30/20 [History Last Taken Unknown] coenzyme Q10 100 mg capsule 100 mg PO DAILY 08/01/20 [History Last Taken Unknown] ascorbate calcium-bioflavonoid 1,000 mg-200 mg tablet 1 tab PO DAILY 09/12/20 [History Last Taken Unknown] dexamethasone [Decadron] 6 mg PO DAILY #9 tab 12/03/20 [Rx Last Taken Unknown] ondansetron 4 mg PO Q8H PRN #10 tab 12/03/20 [Rx Last Taken Unknown] Allergy/AdvReac Type Severity Reaction Status Date / Time ciprofloxacin [From Cipro] Allergy Intermediate Other Verified 12/06/20 10:15 diazepam [From Valium] AdvReac Other Verified 12/06/20 10:15 Family History Father CVA (cerebral vascular accident) Heart disease Grandfather Myocardial infarction Heart disease Diabetes Sister Cancer Breast Cancer Surgical History History of bilateral cataract extraction History of cholecystectomy History of total hysterectomy History of tubal ligation Social History Smoking Status: Never smoker alcohol intake: never substance use type: does not use caffeine: Yes Type: coffee Number of servings: 2 ROS ROS Narrative Constitutional: Reports fatigue and weakness HEENT: Reports systems reviewed and no addt'l complaints, except as documented Respiratory/Chest: As mentioned in HPI. Gastrointestinal: Denies coffee ground emesis, hematemesis or melena. Nausea present Genitourinary: Denies burning urination or new urinary tract symptoms Musculoskeletal: Reports joint pain and limited range of motion Neurologic: Denies seizure-like activity skin: No ulcer. No rash Endocrinology: Reports systems reviewed and no addt'l complaints, except as documented Hematologic/Lymphatic: Reports systems reviewed and no addt'l complaints, except as documented Rest 12 ROS are negative except as mentioned in HPI Vital Signs Vital Signs Vital Signs: 12/06/20 10:16 12/06/20 10:27 12/06/20 11:03 Temperature 99 F 99.0 F Temperature Source Temporal Temporal Pulse Rate 87 93 87 Respiratory Rate 22 H 22 H 26 H Respiratory Effort Respiratory Depth Respiratory Pattern Blood Pressure 131/79 H 131/79 H Blood Pressure Mean 96 96 Pulse Ox 93 96 96 Oxygen Delivery Method Room Air Nasal Cannula Nasal Cannula Oxygen Flow Rate (L/min) 4 3 12/06/20 11:04 12/06/20 12:15 12/06/20 12:42 Temperature 97.8 F Temperature Source Oral Pulse Rate 94 Respiratory Rate 25 H Respiratory Effort Short of Breath Labored Respiratory Depth Normal Respiratory Pattern Tachypnea Blood Pressure 108/62 Blood Pressure Mean 77 Pulse Ox 94 96 Oxygen Delivery Method Nasal Cannula Nasal Cannula Nasal Cannula Oxygen Flow Rate (L/min) 3 3 4 12/06/20 14:06 Temperature 98.2 F Temperature Source Oral Pulse Rate 82 Respiratory Rate 24 H Respiratory Effort Respiratory Depth Respiratory Pattern Blood Pressure 132/84 H Blood Pressure Mean 100 Pulse Ox 95 Oxygen Delivery Method Nasal Cannula Oxygen Flow Rate (L/min) 4 Weight Weight: 185 lb Body Mass Index (BMI) 34.9 Physical Exam Narrative General: Mild lethargy, Oriented x3, Cooperative HEENT: Atraumatic, PERRLA, EOMI, Normocephalic Oral: No Gingival or Mucosal Lesions/ Ulcerations Neck: Supple, No JVD, Negative Carotid Bruits Lungs: Air entry diminished in bilateral lung bases. Bilateral crepitations present. Mild tachypnea and hypoxia. Cardiovascular: Regular rate, Regular Rhythm, Normal S1, Normal S2, No murmurs Abdomen: Bowel Sounds Present, Soft, Non Tender, Non-Distended : No renal angle tenderness. No suprapubic tenderness. Extremities: No edema, Capillary Refill Less than 3 Seconds Skin: No rashes, No breakdown Musculoskeletal: No Tenderness to Palpation of Joints or Extremities Neurological: Cranial nerves II-XII grossly intact, DTR 2+/4 and Symmetrical, Neuro grossly intact Psych/Mental Status: Flat affect. Results Lab / Micro Data Result Diagrams: 12/06/20 11:11 12/06/20 11:11 Labs: Laboratory Results - last 24 hr 12/06/20 11:11: WBC 9.8, RBC 4.22, Hgb 12.2, Hct 34.6 L, MCV 82.0, MCH 28.9, MCHC 35.3, RDW Std Deviation 41.7, RDW Coeff of Thomas 14.1, Plt Count 258, MPV 9.0, Immature Gran % (Auto) 0.600, Neut % (Auto) 93.8 H, Lymph % (Auto) 3.4 L, [place] % (Auto) 2.1, Eos % (Auto) 0.0, Baso % (Auto) 0.1, Absolute Neuts (auto) 9.2 H, Absolute Lymphs (auto) 0.33 L, Nucleated RBC % 0, Differential Comment COMMENT 12/06/20 11:11: Sodium 131 L, Potassium 3.6, Chloride 97 L, Carbon Dioxide 29.0, Anion Gap 5, BUN 14, Creatinine 0.72, Estim Creat Clear Calc 40.07, Est GFR (MDRD) Af Amer 103, Est GFR (MDRD) Non-Af 85, BUN/Creatinine Ratio 19.4, Glucose 133 H, Calcium 8.7, Total Bilirubin 0.70, AST 37, ALT 43, Alkaline Phosphatase 62, Troponin I High Sens 12, Total Protein 6.6, Albumin 2.7 L, Globulin 3.9, Albumin/Globulin Ratio 0.7 L 12/06/20 11:11: Lactic Acid 1.5 Radiology Impression Chest X-Ray 12/06/20 11:13 IMPRESSION: Progressive bilateral pulmonary infiltrates worse in the left lung. Electronically Signed: Cesar Art MD at 11:27 EDT , Service support , Assessment & Plan Assessment/Plan (1) COVID-19: PLAN: This 70-year-old female is being admitted for bilateral COVID-19 pneumonia 1. Acute hypoxia respiratory failure secondary to bilateral COVID-19 pneumonia: [facility] Patient dexamethasone started on 12/03 and will continue it. Patient symptomatology onset was 11/25 therefore does not qualify for remdesivir. Does not qualify for baricitinib as her oxygen requirement currently not high. Discussed with ID. Symptomatic management with Mucinex, incentive spirometry and Pep. 2. Pure hypercholesterolemia: Patient on a lot of herbal medications/multivitamin including, coenzyme ascorbic acid and cyanocobalamin but not on hyperlipidemic agent. 3. Endometrial cancer: Follow with PCP/oncologist 4. VTE prophylaxis: Lovenox 30 mg subcu twice daily. Living will/advanced directive/end of life care: Patient does not have living will or advanced directive. After discussion of benefits/risks procedures involved with full code, DNR CC arrest and DNR CC, the patient has not decided yet but will think on it. By default we will consider full code. Patient does want artificial life support including intubation, tube feed, ventilator and/chest compression, central venous catheter, vasopressor and DC shock if needed Total time spent in [id number] encounter in discussion of advanced directive 16 minutes. Charges/Coding Visit Charges Inpatient E&M: 22250 Init Hosp L3 Procedures Hospitalists Procedures: 07478 Advncd Care Plan 30 Min
[2020-12-06 14:40] LABS: Magnesium 1.9 mg/dL (1.6-2.6)
[2020-12-06] MEDS: 0.9% Normal Saline 1,000 ML 100 ML IV (15:47)
[2020-12-06] MEDS: Enoxaparin 30 MG/0.3 ML Syringe SC ×2 (15:47→20:52)
[2020-12-06 16:01] LABS: Fibrinogen 665 mg/dl (203-444)
[2020-12-06 16:02] LABS: CPK Total, Creatine Kinase 133 U/L (26-192); LDH 337 U/L (84-246)
[2020-12-06 16:11] LABS: Procalcitonin 0.08 ng/mL (0.00-0.09)
[2020-12-06 16:46] LABS: D-Dimer Quantitative (DVT/PE) 0.75 FEU/ug/m (0.27-0.49)
[2020-12-06] MEDS: guaiFENesin/D-Methorphan TAB.SR.12H 1 TABLET PO ×2 (17:10→20:52)
[2020-12-07] VITALS (9 sets, daily range): BP systolic 134–164; BP diastolic 71–85; PULSE 55–74; RESP 18–20; TEMP 35.9–36.6; O2SAT 92–98
[2020-12-07] MEDS: 0.9% Normal Saline 1,000 ML 100 ML IV (00:55)
[2020-12-07] MEDS: Ondansetron 4 MG/2 ML Vial IV ×2 (01:05→10:07)
--- NOTE | 2020-12-07 05:23 | NURSING ---
Family member from [place] called in. This RN tried to establish a point of contact but daughterShe said their family does not communicate well and some of them don't even speak to each other.
--- NOTE | 2020-12-07 05:24 | NURSING ---
Daughter from [place] called in to see how her mom was doing. I gave her some brief information and asked if we could come up with a person that could be the primary contact for this pt since we have been receiving alot of calls. Daughter stated their family does not communicate well and that some of them are not even on speaking terms.
[2020-12-07 08:22] LABS: Absolute Lymphocyte Count 0.45 X10^3/uL (0.83-4.51); Absolute Neutrophil Count 6.5 X10^3/uL (2.0-7.7); Hematocrit 35.4 % (37-47); Lymphocyte # 0.45 X10^3/ul (0.83-4.51); Lymphocyte % 6.1 % (19-41); Mean Corp Hgb Conc 33.9 g/dL (32-36); Mean Corpuscular Hgb 28.4 pg (27.0-32.0); Mean Corpuscular Volume 83.7 fL (81-99); Mean Platelet Vol. 9.1 fl (6.2-12.0); Monocyte# 0.32 X10^3/uL; Monocyte% 4.3 % (0-10); NRBC Flagged by Analyzer 0 % (0-5); Neutrophil # 6.54 X10^3/uL (2.7-7.7); Neutrophil % 88.7 % (47-70); POSITIVE DIFFERENTIAL YES; Platelet Count 288 K/mm3 (150-450); RBC Distribution Width CV 13.8 % (11.6-14.6); RBC Distribution Width SD 42.3 fl (35.1-43.9); Red Blood Count 4.23 M/mm3 (4.2-5.4); White Blood Count 7.4 K/mm3 (4.4-11.0)
[2020-12-07 08:23] LABS: Differential Indicated SCAN CRITERIA MET
[2020-12-07 08:38] LABS: ALB/GLOB Ratio 0.7 RATIO (0.9-2.4); AST(SGOT) 40 U/L (15-37); Alanine Aminotransfer ALT/SGPT 51 U/L (13-56); Albumin, Serum 2.4 g/dL (3.2-5.0); Alkaline Phosphatase 58 U/L (45-117); Anion Gap 6 (5-15); BUN 16 mg/dL (7-18); BUN/Creat Ratio 30.1 RATIO (10-20); Calcium,Total 8.1 mg/dL (8.5-10.1); Chloride 101 mmol/L (98-107); Creatinine, Serum 0.53 mg/dL (0.55-1.02); EST Glomerular Filtration Rate 121 mL/min (>60); Est Glom Filt Rate - Afr Amer 147 mL/min (>60); Estimated Creatinine Clearance 40.07 ml/min; Globulin 3.3 g/dL (2.2-4.2); Glucose 100 mg/dL (74-106); Phosphorus 2.8 mg/dL (2.5-4.9); Potassium 3.9 mmol/L (3.5-5.1); Protein, Total 5.7 g/dL (6.4-8.2); Sodium Level 134 mmol/L (136-145)
[2020-12-07] MEDS: dexAMETHasone 2 MG TABLET 6 MG PO (10:02)
[2020-12-07] MEDS: Acetaminophen 325 MG Tablet 650 MG PO ×2 (10:02→22:35)
[2020-12-07] MEDS: Cyanocobalamin 500 MCG Tablet 1000 MCG PO (10:02)
[2020-12-07] MEDS: guaiFENesin/D-Methorphan TAB.SR.12H 1 TABLET PO ×2 (10:02→22:30)
[2020-12-07] MEDS: Enoxaparin 40 MG/0.4 ML Syringe SC (10:03)
--- NOTE | 2020-12-07 13:07 | NURSING ---
female phoned in she it pt daughter Rebecca- inquired as to if she is point-of- contact, kb and she states she thinks perhaps her father is but is unsure as she doens't think he would want that responsibility. Rebecca agrees to all back with update on who [id number] is for pt. Clarified with pt whom she would like the point of bus person dishwasher to be and she indicates that she would like Bethany: [phone].
--- NOTE | 2020-12-07 15:50 | CASEMGMT ---
JEB LESLIE assessment: Initial transition planning/care coordination assessment. JEB LESLIE introduced self and role at [facility], pt voices understanding and consents to assessment. Pt is A/Ox4 and answers all questions appropriately. Pt states has been sick for last several weeks and states no concerns getting resources at home. Pt is on 3L nc and able to speak in full sentences but is weak. Care providers, pharmacy, and demographics verified. Presentation: Pt dx with COVID last wednesday but is unable to eat and getting weaker Admitting dx: COVID PCP: Pt provided list of local PCP's Specialists: Pt states no specialists. Preferred Pharmacy: [facility] Insurance: [facility] A/B, [facility] Prescription Benefit: [facility] Living Will/HPOA: Pt states does not have LW/HPOA and declines AD info. LNOK: Sagar Mann, ; Rebecca Francis, daughter Living Arrangements: Pt states lives with in home and states no concerns at home. Pt states is independent with ADL's. Transportation: Pt states drives self and states no transportation concerns. DME/HHC: Pt states no current DME or need for any further DME. Pt states no preference for DME company, if qualifies for home oxygen at discharge. Pt states no hx of HHC or SNF in the past. Pt states no concerns with going home at time of discharge. Pt is retired. Pt states does not smoke cigarettes or drink ETOH. Pt states no further concerns/needs. CM to follow for any further discharge planning/needs. Advised pt to ask for CM if any further questions/concerns/needs arise, voices understanding. Pt Goal: Home Plan: Home, pending home oxygen testing. [place] JEB LESLIE
--- NOTE | 2020-12-07 16:17 | PCM.PN.HOSP ---
Subjective Subjective Patient was seen and examined today, she had questions about Pulmicort aerosol treatments, I told her it would not help her condition that she was already on dexamethasone. Patient did not take the COVID-19 vaccine, she appeared skeptical about this vaccine to me when she stated that she did not take it. Objective Data Objective Data Vital Signs: Vital Signs Temp Pulse Resp BP Pulse Ox 97.9 F 74 18 134/71 H 98 12/07/20 15:00 12/07/20 15:00 12/07/20 15:00 12/07/20 15:00 12/07/20 15:00 Oxygen Flow Rate (L/min) 3 Oxygen Delivery Method Nasal Cannula Weight: 84.822 kg Body Mass Index (BMI) 35.3 Intake & Output: Intake and Output for Last 24 Hours 12/05/20 12/06/20 12/07/20 23:59 23:59 23:59 Intake Total 150 / 150 3.33 / 3.33 Balance 150 / 150 1912.33 / 1912.33 Lab / Micro Data Result Diagrams: 12/07/20 07:23 12/07/20 07:23 Labs: Laboratory Results - last 24 hr 12/06/20 11:11: D-Dimer Quant (PE/DVT) 0.75 H* 12/07/20 07:23: WBC 7.4, RBC 4.23, Hgb 12.0, Hct 35.4 L, MCV 83.7, MCH 28.4, MCHC 33.9, RDW Std Deviation 42.3, RDW Coeff of Thomas 13.8, Plt Count 288, MPV 9.1, Immature Gran % (Auto) 0.900, Neut % (Auto) 88.7 H, Lymph % (Auto) 6.1 L, [place] % (Auto) 4.3, Eos % (Auto) 0.0, Baso % (Auto) 0.0, Absolute Neuts (auto) 6.5, Absolute Lymphs (auto) 0.45 L, Nucleated RBC % 0 12/07/20 07:23: Sodium 134 L, Potassium 3.9, Chloride 101, Carbon Dioxide 27.0, Anion Gap 6, BUN 16, Creatinine 0.53 L, Estim Creat Clear Calc 40.07, Est GFR (MDRD) Af Amer 147, Est GFR (MDRD) Non-Af 121, BUN/Creatinine Ratio 30.1 H, Glucose 100, Calcium 8.1 L, Phosphorus 2.8, Total Bilirubin 0.60, AST 40 H, ALT 51, Alkaline Phosphatase 58, Total Protein 5.7 L, Albumin 2.4 L, Globulin 3.3, Albumin/Globulin Ratio 0.7 L Physical Exam Const alert, oriented x3, no apparent distress and healthy appearing General Appearance: cooperative, well kempt and well developed Orientation / Consciousness: awake, oriented to person, oriented to place and oriented to time HEENT normocephalic, head/scalp atraumatic and moist oral mucous membranes Head and Scalp: normocephalic Eyes PERRL, EOMs intact bilaterally and conjunctivae normal Neck nuchal rigidity, supple, no JVD, thyroid normal and no carotid bruits General: trachea midline Resp normal respiratory effort, no retractions, no use of accessory muscles and clear to auscultation bilaterally Auscultation: Negative for rales, rhonchi or wheezes Cardio regular rate, regular rhythm, S1 normal heart sound, S2 normal heart sound, no murmurs, no rub, no gallops and no clicks GI normal to inspection, nondistended, normoactive bowel sounds, soft to palpation, non-tender and non-distended Extremity no clubbing, cyanosis or edema Skin no rashes or lesions noted and skin turgor normal General Skin Exam: no breakdown Neuro oriented x3, CN's II-XII intact bilaterally, no focal motor deficits and no sensory deficits noted Sensorium / Orientation: awake and alert Speech: speech normal Psych thought process normal and affect normal Assessment & Plan Assessment/Plan (1) Pneumonia due to COVID-19 virus: PLAN: 1. COVID-19 pneumonia-continue dexamethasone #2 hypoxic respiratory failure secondary to #1 #3 hyperlipidemia I will reevaluate the patient tomorrow for discharge home on home oxygen. Charges/Coding Visit Charges Inpatient E&M: 82066 Subs Hosp L2
[2020-12-07] MEDS: Furosemide 40 MG Tablet PO (17:18)
[2020-12-07] MEDS: 0.9% Saline Lock 10 ML Syringe IV (22:32)
[2020-12-08 01:40] VITALS: PULSE 64; O2SAT 97
[2020-12-08 04:55] VITALS: BP 138/73; PULSE 64; RESP 20; TEMP 35.9; O2SAT 94
[2020-12-08] MEDS: Ondansetron 4 MG/2 ML Vial IV ×2 (05:11→14:20)
[2020-12-08] MEDS: 0.9% Saline Lock 10 ML Syringe IV ×2 (05:14→14:20)
--- NOTE | 2020-12-08 06:20 | NURSING ---
Jacque, pt's daughter, called in for update.
[2020-12-08 08:50] VITALS: BP 148/83; PULSE 69; RESP 18; TEMP 36.6; O2SAT 97
[2020-12-08] MEDS: dexAMETHasone 2 MG TABLET 6 MG PO (08:52)
[2020-12-08] MEDS: guaiFENesin/D-Methorphan TAB.SR.12H 1 TABLET PO (08:53)
[2020-12-08] MEDS: Enoxaparin 40 MG/0.4 ML Syringe SC (08:53)
[2020-12-08] MEDS: Cyanocobalamin 500 MCG Tablet 1000 MCG PO (08:53)
[2020-12-08 11:10] VITALS: O2SAT 87; O2SAT 92
--- NOTE | 2020-12-08 12:51 | PCM.DC ---
Discharge Instructions Diet Discharge Diet: No restrictions Activity Discharge Activity: Return to Normal Activity Weight Bearing Status: Full weight bearing Follow Up Care Test Results: Test results from this visit will be discussed in further detail at your follow-up appointment, if applicable. Discharge Plan Admission Admit Date/Time: 12/06/20 14:06 Primary Reason for Your Visit: COVID-19 pneumonia Attending Provider: Chalo Arnold Primary Care Provider: Care Physician,No Primary Instructions Additional Instructions / Restrictions: Quarantine for a total of 20 days after for symptoms of Covid Use 2 L of oxygen via nasal cannula when ambulating Discharge Orders/Prescriptions Prescriptions: Continued coenzyme Q10 100 mg capsule 100 mg PO DAILY RF: 0 Mag-C with Bioflavonoids 1,000-200 mg tablet 1 tab PO DAILY RF: 0 ondansetron 4 mg tablet,disintegrating 4 mg PO Q8H PRN (Reason: nausea and vomiting) Qty: 10 RF: 0 dexamethasone [Decadron] 6 mg tablet 6 mg PO DAILY Qty: 9 RF: 0 cyanocobalamin (vitamin B-12) 1,000 mcg/15 mL liquid 1,000 mcg PO DAILY RF: 0 garlic 1,000 mg capsule 1,000 mg PO DAILY RF: 0 multivitamin Tablet 1 tab PO DAILY RF: 0 Referrals / Follow Up: Care Physician,No Primary [Primary Care Provider] - See Referral Note (in two weeks) Disposition Disposition (needs filled in before D/C Order can be placed): Home, Self Care
[2020-12-08 14:33] VITALS: BP 143/74; PULSE 68; RESP 18; O2SAT 94
--- NOTE | 2020-12-08 18:35 | PCM.DC.SUM ---
Providers Date of Admission: 12/06/20 Date of Discharge: 12/08/20 Primary Care Physician: No Primary Care Phys Reason For Visit: COVID 19 Diagnosis Discharge Diagnosis (1) Pneumonia due to COVID-19 virus: Status: Acute Code(s): U07.1 - COVID-19; J12.82 - Pneumonia due to coronavirus disease 2019 Plan: 1. COVID-19 pneumonia #2 acute hypoxic respiratory failure secondary to #1 #3 hyperlipidemia Medications at Discharge Home Medications cyanocobalamin (vitamin B-12) 1,000 mcg/15 mL oral liquid 1,000 mcg PO DAILY 07/30/20 garlic 1,000 mg capsule 1,000 mg PO DAILY cap 07/30/20 multivitamin 1 tab PO DAILY 07/30/20 coenzyme Q10 100 mg capsule 100 mg PO DAILY 08/01/20 ascorbate calcium-bioflavonoid 1,000 mg-200 mg tablet 1 tab PO DAILY 09/12/20 dexamethasone [Decadron] 6 mg PO DAILY #9 tab 12/03/20 ondansetron 4 mg PO Q8H PRN #10 tab 12/03/20 Hospital Course Operations None Procedures None Summary of Care Provided Minutes Spent on Discharge: 31 Hospital Course: This 70-year-old white female was seen in the emergency room with chief complaint of shortness of breath, she had been diagnosed with COVID-19 approximately 3 days prior, she stated her breathing was gradually getting worse. Work-up in the ER showed bilateral lower lobe infiltrates, patient's white count was normal. Patient required supplemental oxygen via nasal cannula to maintain her pulse ox above 90%. Patient was admitted to [place] [id number], the patient's symptomatology onset was 11/25/2020, therefore she was not a candidate for administration of remdesivir. She remained on dexamethasone while in the hospital. On 12/08/2020, patient was evaluated on room air, she did not need oxygen at rest but she required oxygen at 2 L/min via nasal cannula on ambulation. Patient was seen and examined on 12/08/2020: On examination she appeared in good health and spirits, she does not appear to be in any distress. Vital signs as documented. Skin warm and dry and without overt rashes. Neck without JVD, thyroid appears normal, trachea is midline, neck is supple. Lungs clear, normal air movement was noted. Heart exam notable for regular rhythm, normal sounds and absence of murmurs, rubs or gallops. Abdomen unremarkable and without evidence of organomegaly, masses, or abdominal aortic enlargement, bowel sounds are present in all 4 quadrants, no abdominal tenderness was noted. Extremities nonedematous, no cyanosis was noted, no clubbing was noted. Neuro: Cranial nerves II through XII are grossly intact, no focal motor deficits were noted, sensation to light touch and pinprick is intact, motor exam 5/5 throughout. Psych: Patient is alert and oriented x3, she does not appear anxious or depressed, she does not appear agitated. Patient was felt to be stable for discharge home on 12/08/2020, she was expected to use home oxygen on ambulation inside and outside the home. Patient was to finish her previous prescription for Decadron given to her as an outpatient. Weight / BMI Weight Weight: 84.822 kg Body Mass Index (BMI) 35.3 ABG / Lab / Microbiology Data Result Diagrams: 12/07/20 07:23 12/07/20 07:23 D/C Instructions Discharge Diet: No restrictions Weight Bearing Status: Full weight bearing Meaningful Use Info Meaningful Use Diagnoses (Choose all that apply): None applicable Discharge Plan Admission Admit Date/Time: 12/06/20 14:06 Primary Reason for Your Visit: COVID-19 pneumonia Attending Provider: Chalo Arnold Primary Care Provider: Kelin Chaidez,Marilyn Primary Instructions Additional Instructions / Restrictions: Quarantine for a total of 20 days after for symptoms of Covid Use 2 L of oxygen via nasal cannula when ambulating Discharge Orders/Prescriptions Prescriptions: Continued coenzyme Q10 100 mg capsule 100 mg PO DAILY RF: 0 Mag-C with Bioflavonoids 1,000-200 mg tablet 1 tab PO DAILY RF: 0 ondansetron 4 mg tablet,disintegrating 4 mg PO Q8H PRN (Reason: nausea and vomiting) Qty: 10 RF: 0 dexamethasone [Decadron] 6 mg tablet 6 mg PO DAILY Qty: 9 RF: 0 cyanocobalamin (vitamin B-12) 1,000 mcg/15 mL liquid 1,000 mcg PO DAILY RF: 0 garlic 1,000 mg capsule 1,000 mg PO DAILY RF: 0 multivitamin Tablet 1 tab PO DAILY RF: 0 Referrals / Follow Up: Care Physician,No Primary [Primary Care Provider] - See Referral Note (in two weeks) Disposition Disposition (needs filled in before D/C Order can be placed): Home, Self Care Charges/Coding Visit Charges Inpatient E&M: 07256 Disch Hosp
--- NOTE | 2020-12-09 14:13 | CASEMGMT ---
JEB LESLIE Discharge Follow-up Phone Call: EDDY: 8 Strata: 2 Call Date: 12/09/20 Discharge Date: 12/05/20 Time of Call: 1413 Duration: 1 min Admitting Diagnosis: Covid JEB LESLIE attempted to complete follow-up phone call after recent hospitalization. No answer, voice message left with return contact information.
== END 2020-12-08 15:17 | disposition home or self-care (01) | DRG 177 ==
LOC: ED 14:14 → MS3 14:54
PROVIDERS: Admitting Provider Internal Medicine; Emergency Provider Emergency Medicine; Visit Provider Internal Medicine
DX: U07.1 COVID-19 (principal); J12.82 Pneumonia due to coronavirus disease 2019; J96.01 Acute respiratory failure with hypoxia; E78.5 Hyperlipidemia, unspecified; C54.1 Malignant neoplasm of endometrium
CPT/HCPCS: 71045; 80053; 82550; 83605; 83615; 83735; 84100; 84145; 84484; 85025; 85379; 85384; 86140; 87040; 87426; 93005; 94640; 94667; 94668; 96374; 96375; 99251; 99285; J7030; A4216; G0463; J2405

== ENCOUNTER 2023-11-06 11:55 | Emergency (ER) | payer MEDICARE, OTHER, SELFPAY ==
[2023-11-06 11:56] VITALS: BP 204/103; PULSE 101; RESP 16; O2SAT 96
[2023-11-06 11:57] VITALS: BP 191/95; PULSE 102; RESP 16; TEMP 36.2; O2SAT 98; BMI 39.9
--- NOTE | 2023-11-06 12:07 | EKG12_ITS ---
Test Reason : HYPERTENSION Blood Pressure : / mmHG Vent. Rate : 092 BPM Atrial Rate : 092 BPM P-R Int : 160 ms QRS Dur : 074 ms QT Int : 384 ms P-R-T Axes : 026 -24 047 degrees QTc Int : 474 ms Normal sinus rhythm with sinus arrhythmia Normal ECG Confirmed by Aime Dominguez ([id number]), ed tech LAURA MERIDA ([id number]) on 11/08/2023 10:29:49 AM Referred By: Confirmed By:Aime Dominguez
[2023-11-06] MEDS: hydrALAZINE 20 MG/ML Vial 10 MG IV (12:18)
--- NOTE | 2023-11-06 12:20 | EDS_ITS ---
HPI History of Present Illness Chief Complaint: Hypertension Narrative Narrative: 73-year-old female, recently diagnosed with hypertension and started on amlodipine 5 mg daily back on , 2 days ago presents with malaise and not feeling right. She states when she was being seen by her primary care provider, her blood pressure was elevated in the 160s systolic. They took it a few more times and it elevated to the 170s. She was started on amlodipine 5 mg daily. She took it yesterday and today, and states that her blood pressure remains elevated. She overall does not feel well. She denies any chest pain or shortness of breath. She told the triage nurse that she feels yucky. No leg swelling, no other symptoms. No exacerbating or alleviating factors. [facility] Medical History Pneumonia due to COVID-19 virus COVID-19 Abnormal stress test Pure hypercholesterolemia PAC (premature atrial contraction) Chest pain Premature ventricular contraction Endometrial cancer Home Medications ?Medication ?Instructions ?Recorded ?Last Taken ?Type cyanocobalamin (vitamin B-12) 1,000 mcg PO DAILY 07/30/20 Unknown History 1,000 mcg/15 mL oral liquid garlic 1,000 mg capsule 1,000 mg PO DAILY 07/30/20 Unknown History multivitamin 1 tab PO DAILY 07/30/20 Unknown History coenzyme Q10 100 mg capsule 100 mg PO DAILY 08/01/20 Unknown History ascorbate calcium-bioflavonoid 1 tab PO DAILY 09/12/20 Unknown History 1,000 mg-200 mg tablet (Mag-C with Bioflavonoids) dexamethasone 6 mg tablet 6 mg PO DAILY #9 tabs 12/03/20 Unknown Rx (Decadron) ondansetron 4 mg disintegrating 4 mg PO Q8H PRN nausea and 12/03/20 Unknown Rx tablet vomiting #10 tabs Allergy/AdvReac Type Severity Reaction Status Date / Time ciprofloxacin (From Cipro) Allergy Intermediate Other Verified 11/06/23 11:57 diazepam (From Valium) AdvReac Other Verified 11/06/23 11:57 Family History Father CVA (cerebral vascular accident) Heart disease Grandfather Myocardial infarction Heart disease Diabetes Sister Cancer Breast Cancer Surgical History History of total hysterectomy History of cholecystectomy History of tubal ligation History of bilateral cataract extraction Social History Smoking Status: Never smoker alcohol intake: never substance use type: does not use caffeine: Yes Type: coffee Number of servings: 2 ROS ROS ED ROS Narrative Constitutional: No fever, no chills. Positive malaise. Nonspecific complaint of not feeling well. HEENT: No sore throat. No neck pain. No loss of vision. No rhinorrhea. Cardiovascular: No chest pain. No palpitations. No pedal edema. Respiratory: No cough, no shortness of breath. Abdominal: No abdominal pain. No nausea. No vomiting. Genitourinary: No dysuria. No hematuria. Musculoskeletal: No myalgias. No arthralgias. Neurologic: No headaches. No dizziness. No lightheadedness. Skin: No rash. No change in color. Psychiatric: No depression. No anxiety. EXAM Physical Exam Narrative Exam Narrative: Afebrile. Vital signs noted. HEENT: Normocephalic. Atraumatic. PERRL, EOMI. Neck soft and supple. No point tenderness or step off. Cardiovascular: Regular rate and rhythm with intermittent tachycardia. No murmurs, rubs, or gallops appreciated. Respiratory: No tachypnea. Lungs clear to auscultation bilaterally. Gastrointestinal: Abdomen soft, nontender, with normoactive bowel sounds. No rebound or guarding. Neurological: Awake. Alert. Nonfocal, nonlateralizing. Able to stand, ambulate, and transfer to cot. Skin: No rash. Normal color. No pallor. Musculoskeletal: No pedal edema. Full range of motion extremities. Const Vital Signs: 11/06/23 11:56 11/06/23 11:57 11/06/23 12:05 Temperature 97.1 F L Temperature Source Temporal Pulse Rate 101 H 102 H Respiratory Rate 16 16 Respiratory Effort Normal Respiratory Pattern Normal Blood Pressure 204/103 H 191/95 H Blood Pressure Mean 136 127 Pulse Ox 96 98 Oxygen Delivery Method Room Air Room Air MDM MDM MDM Narrative Medical decision making narrative: Upon arrival, blood pressure is elevated at 191/95. Pulse ox 98% on room air. Differential diagnosis includes but not limited to hypertensive urgency/emergency and generalized weakness. She may have an occult urinary tract infection but denies any overt dysuria. She states she has urinary frequency however. Repeat blood pressure is elevated 204/103. She was administered hydralazine 10 mg intravenously and placed on the weir fisher. Comprehensive workup was pursued. This includes EKG and single troponin. I do not feel that she needs serial enzymes currently as she has not felt well over the last 2 days. I reviewed her laboratory work and she has normal white count of 7.4 with hemoglobin normal at 14.7, platelet count normal at 282. CMP is grossly unremarkable except for glucose of 119 with a normal anion gap of 9. She does have slight elevation of her AST at 43 and ALT at 79 which I think is nonspecific. Alk phos is normal at 87. I do not feel that she needs any abdominal imaging currently. High-sensitivity troponin is normal at 6. I do not feel she needs serial enzymes because she has not felt well for the last 2 days. Urinalysis obtained and reviewed and there is no evidence of infection so I do not feel antibiotics are indicated. Repeat examination at approximately 1345 shows her blood pressure after hydralazine to be 151 systolic. She states she feels improved. I do not feel that she requires observation or admission for hypertensive urgency. She was told to continue her amlodipine and keep a log of her blood pressures and follow-up with her primary care provider. She states she has an appointment next week on , a week from her original appointment. She was told to return with continued elevated systolic blood pressure, especially over 200. She is to return with chest pain, shortness of breath, headaches, new or worsening symptoms. Patient agreeable to the plan. Disposition is discharged home in stable condition. History & Record Review Discussion w/independent historian: Patient Lab Data Attestation: I reviewed the patient's lab results. Labs: Laboratory Results - last 24 hr 11/06/23 11/06/23 12:16 12:35 WBC 7.4 RBC 5.09 Hgb 14.7 Hct 43.4 MCV 85.3 MCH 28.9 MCHC 33.9 RDW Std Deviation 42.8 RDW Coeff of [place] 13.7 Plt Count 282 MPV 8.8 Immature Gran % (Auto) 0.400 Neut % (Auto) 82.1 H Lymph % (Auto) 10.7 L Rankin % (Auto) 5.3 Eos % (Auto) 0.8 Baso % (Auto) 0.7 Absolute Neuts (auto) 6.0 Absolute Lymphs (auto) 0.79 L Nucleated RBC % 0 Sodium 137 Potassium 3.6 Chloride 101 Carbon Dioxide 27.0 Anion Gap 9 BUN 16 Creatinine 0.93 Estim Creat Clear Calc 57.80 Est GFR (MDRD) Af Amer 76 Est GFR (MDRD) Non-Af 63 BUN/Creatinine Ratio 17.2 Glucose 119 H Calcium 9.7 Total Bilirubin 0.70 AST 43 H ALT 79 H Alkaline Phosphatase 87 Troponin I High Sens 6 Total Protein 7.7 Albumin 4.2 Globulin 3.5 Albumin/Globulin Ratio 1.2 Urine Color Yellow Urine Clarity Clear Urine pH 7.0 Ur Specific [place] 1.010 Urine Protein Negative Urine Glucose (UA) Normal Urine Ketones 50 H Urine Occult Blood Negative Urine Nitrite Negative Urine Bilirubin Negative Urine Urobilinogen Normal Ur Leukocyte Esterase Negative Urine RBC 0 SEEN Urine WBC 0 SEEN Ur Squamous Epith Cells 0 SEEN Urine Bacteria 0 SEEN Urine Mucus 0 SEEN Radiography Diagnostic Testing: Clinical Impression(s) from Imaging Studies Chest X-Ray 11/06/23 12:25 IMPRESSION: 1. No radiographic evidence of acute cardiopulmonary disease. 2. Interval clearing of interstitial infiltrates in both lungs when compared to 12/06/2020. Electronically Signed: Adolph Ospina MD at 12:53 EDT , Discharge Plan Triage Chief Complaint: Hypertension ED Provider: Adolph Hinojosa Dx/Rx/DC Orders Clinical Impression: Hypertension, Malaise Instructions: ED Hypertension, Established Prescriptions: No Action coenzyme Q10 100 mg capsule 100 mg PO DAILY Mag-C with Bioflavonoids 1,000-200 mg tablet 1 tab PO DAILY ondansetron 4 mg tablet,disintegrating 4 mg PO Q8H PRN (Reason: nausea and vomiting) Qty: 10 0RF dexamethasone [Decadron] 6 mg tablet 6 mg PO DAILY Qty: 9 0RF cyanocobalamin (vitamin B-12) 1,000 mcg/15 mL liquid 1,000 mcg PO DAILY garlic 1,000 mg capsule 1,000 mg PO DAILY multivitamin Tablet 1 tab PO DAILY Primary Care Provider: Kalie Sanches Referrals: Kalie Sanches, [employer] [Primary Care Provider] - Activity Restrictions/Additional Instructions: Follow-up with your primary care provider as scheduled on . Return with headache, chest pain, new or worsening symptoms. Keep a log of your blood pressure. Print Language: [place] Citizen Disposition Disposition: Home, Self Care
[2023-11-06 12:23] LABS: Absolute Lymphocyte Count 0.79 X10^3/uL (0.83-4.51); Basophil# 0.05 X10^3/uL; Basophil% 0.7 % (0-1); Eosinophil# 0.06 X10^3/uL; Eosinophils% 0.8 % (0-5); Hematocrit 43.4 % (37-47); Hemoglobin 14.7 g/dL (12.0-15.0); Lymphocyte # 0.79 X10^3/ul (0.83-4.51); Lymphocyte % 10.7 % (19-41); Mean Corp Hgb Conc 33.9 g/dL (32-36); Mean Corpuscular Hgb 28.9 pg (27.0-32.0); Mean Corpuscular Volume 85.3 fL (81-99); Mean Platelet Vol. 8.8 fl (6.2-12.0); Monocyte# 0.39 X10^3/uL; Monocyte% 5.3 % (0-10); NRBC Flagged by Analyzer 0 % (0-5); Neutrophil # 6.04 X10^3/uL (2.7-7.7); Neutrophil % 82.1 % (47-70); Platelet Count 282 K/mm3 (150-450); RBC Distribution Width CV 13.7 % (11.6-14.6); RBC Distribution Width SD 42.8 fl (35.1-43.9); Red Blood Count 5.09 M/mm3 (4.2-5.4); White Blood Count 7.4 K/mm3 (4.4-11.0)
--- NOTE | 2023-11-06 12:25 | RAD_ITS ---
EXAM: XR CHEST, 1 VIEW CLINICAL INDICATION: CAD. TECHNIQUE: Frontal view of the chest. COMPARISON: 12/06/2020. FINDINGS: LUNGS AND PLEURAL SPACES: Unremarkable. No confluent infiltrates, consolidation or edema. No pleural effusion. No pneumothorax. HEART: Unremarkable. Cardiac silhouette not enlarged. MEDIASTINUM: Central airways and mediastinal contour are unremarkable. BONES/JOINTS: Unremarkable. No acute fracture. SOFT TISSUES: Unremarkable. RAD/Chest 1 View (Portable) IMPRESSION: 1. No radiographic evidence of acute cardiopulmonary disease. 2. Interval clearing of interstitial infiltrates in both lungs when compared to 12/06/2020. Electronically Signed: Adolph Ospina MD at 12:53 EDT ,
[2023-11-06 12:42] LABS: Bacteria 0 SEEN /hpf (None Seen); Color, Urine Yellow (Yellow); Glucose, Dipstick Normal (Normal); Ketone-Dipstick 50 mg/dl (Negative); Leukocyte Esterase-Dipstick Negative /ul (Negative); Mucous, Urine 0 SEEN /hpf (<or=2+); Nitrite-Dipstick Negative (Negative); Occult Blood-Urine Negative /ul (Negative); Protein-Dipstick Negative (Negative); Red Blood Cells-Urine 0 SEEN /hpf (0-5); Squamous Epithelial Cells - UA 0 SEEN /hpf (5-10); Urine Bilirubin Dipstick Negative (Negative); Urine Clarity Clear (Clear); Urine Urobilinogen Normal (Normal); White Blood Cells 0 SEEN /hpf (0-5)
[2023-11-06 12:56] LABS: ALB/GLOB Ratio 1.2 RATIO (0.9-2.4); AST(SGOT) 43 U/L (15-37); Alanine Aminotransfer ALT/SGPT 79 U/L (13-56); Albumin, Serum 4.2 g/dL (3.2-5.0); Alkaline Phosphatase 87 U/L (45-117); Anion Gap 9 (5-15); BUN 16 mg/dL (7-18); BUN/Creat Ratio 17.2 RATIO (10-20); Calcium,Total 9.7 mg/dL (8.5-10.1); Chloride 101 mmol/L (98-107); Creatinine, Serum 0.93 mg/dL (0.55-1.02); EST Glomerular Filtration Rate 63 mL/min (>60); Est Glom Filt Rate - Afr Amer 76 mL/min (>60); Globulin 3.5 g/dL (2.2-4.2); Glucose 119 mg/dL (74-106); Potassium 3.6 mmol/L (3.5-5.1); Protein, Total 7.7 g/dL (6.4-8.2); Sodium Level 137 mmol/L (136-145); Troponin-I HS 6 pg/mL (3.0-54.0)
[2023-11-06 13:56] VITALS: BP 154/84; PULSE 93; RESP 16; TEMP 36.4; O2SAT 93
== END 2023-11-06 13:57 | disposition home or self-care (01) ==
PROVIDERS: Emergency Provider Emergency Medicine; PCP Clinical Nurse Specialist Adult Health; Visit Provider Emergency Medicine
DX: I10 Essential (primary) hypertension (principal); R53.81 Other malaise; E78.00 Pure hypercholesterolemia, unspecified; Z79.899 Other long term (current) drug therapy
CPT/HCPCS: 71045; 80053; 81001; 84484; 85025; 93005; 96374; 99284; A4216

== ENCOUNTER 2023-11-07 10:38 | Emergency (ER) | payer MEDICARE, OTHER, SELFPAY ==
[2023-11-07 10:40] VITALS: BP 172/84; PULSE 100; RESP 18; TEMP 36.6; O2SAT 99; BMI 38.4
--- NOTE | 2023-11-07 11:17 | EKG12_ITS ---
Test Reason : Blood Pressure : / mmHG Vent. Rate : 092 BPM Atrial Rate : 092 BPM P-R Int : 158 ms QRS Dur : 076 ms QT Int : 366 ms P-R-T Axes : 031 -33 050 degrees QTc Int : 452 ms Sinus rhythm with Premature atrial complexes Left axis deviation Minimal voltage criteria for LVH, may be normal variant ( R in aVL ) Nonspecific ST abnormality Abnormal ECG Confirmed by Aime Dominguez ([id number]), editor in chief LAURA MERIDA ([id number]) on 11/08/2023 10:59:46 AM Referred By: Confirmed By:Aime Dominguez
--- NOTE | 2023-11-07 11:18 | EDS_ITS ---
HPI History of Present Illness Chief Complaint: Hypertension Informant: patient and spouse/S.O. Narrative Narrative: Presents to ED with spouse for reevaluation. Seen yesterday for elevated blood pressure. She seen her PCP 2 days prior for normal visit found to have blood pressure 160s to 170s and preparations for preop clearance for revision of her left cataract. States her lens was displaced. This was initially placed 8 years ago. She started amlodipine 2 days ago 5 mg taken her morning dose today. She checked her blood pressure 160s this morning after taking medications was 170. However discussed any new symptoms she states around 10 AM walked up the steps quickly felt palpitations and weird symptoms in her left chest and mild shortness of breath. She has no cough. Currently symptoms resolved with rest. No similar symptoms in the past. Denies diabetes hyperlipidemia or any tobacco history. States mother had PA in the late 80s. She has had stress test in the past no history of heart cath. Spouse reported could there be any blockages. She denies recent travel, surgeries, or immobilizations. No history of PE or DVT. Prior similar symptoms: No PFSH PFSH Medical History Pneumonia due to COVID-19 virus COVID-19 Abnormal stress test Pure hypercholesterolemia PAC (premature atrial contraction) Chest pain Premature ventricular contraction Endometrial cancer Home Medications ?Medication ?Instructions ?Recorded ?Last Taken ?Type cyanocobalamin (vitamin B-12) 1,000 mcg PO DAILY 07/30/20 Unknown History 1,000 mcg/15 mL oral liquid garlic 1,000 mg capsule 1,000 mg PO DAILY 07/30/20 Unknown History multivitamin 1 tab PO DAILY 07/30/20 Unknown History coenzyme Q10 100 mg capsule 100 mg PO DAILY 08/01/20 Unknown History ascorbate calcium-bioflavonoid 1 tab PO DAILY 09/12/20 Unknown History 1,000 mg-200 mg tablet (Mag-C with Bioflavonoids) dexamethasone 6 mg tablet 6 mg PO DAILY #9 tabs 12/03/20 Unknown Rx (Decadron) ondansetron 4 mg disintegrating 4 mg PO Q8H PRN nausea and 12/03/20 Unknown Rx tablet vomiting #10 tabs Allergy/AdvReac Type Severity Reaction Status Date / Time ciprofloxacin (From Cipro) Allergy Intermediate Other Verified 11/07/23 10:39 diazepam (From Valium) AdvReac Other Verified 11/07/23 10:39 Family History Father CVA (cerebral vascular accident) Heart disease Grandfather Myocardial infarction Heart disease Diabetes Sister Cancer Breast Cancer Surgical History History of total hysterectomy History of cholecystectomy History of tubal ligation History of bilateral cataract extraction Social History Smoking Status: Never smoker alcohol intake: never substance use type: does not use caffeine: Yes Type: coffee Number of servings: 2 ROS ROS ED Constitutional Constitutional ED: Denies chills, fever(s) or sweats Eyes Eyes: Denies change in vision ENT ENT ED: Denies dysphagia or sore throat Cardiovascular Cardiovascular: Reports chest pain; Denies leg edema, palpitations or racing heartbeat Respiratory/Chest Respiratory/Chest: Reports dyspnea; Denies cough or dyspnea on exertion Gastrointestinal Gastrointestinal: Denies abdominal pain, diarrhea, nausea or vomiting Genitourinary Genitourinary ED: Denies dysuria, hematuria or urinary frequency Musculoskeletal Musculoskeletal: Denies back pain, extremity pain or neck pain Integumentary Denies rash or wounds Neurologic Neurologic: Denies headache(s), paresthesias or weakness EXAM Physical Exam Const Vital Signs: 11/07/23 10:40 11/07/23 12:39 11/07/23 14:00 Temperature 97.8 F Temperature Source Temporal Pulse Rate 100 88 78 Respiratory Rate 18 18 18 Blood Pressure 172/84 H 156/84 H 167/100 H Blood Pressure Mean 113 108 122 Pulse Ox 99 96 98 Oxygen Delivery Method Room Air Room Air Room Air 11/07/23 14:38 Temperature 98 F Temperature Source Pulse Rate 81 Respiratory Rate 18 Blood Pressure 165/92 H Blood Pressure Mean 116 Pulse Ox 96 Oxygen Delivery Method Positive well nourished and well developed General Appearance ED: well developed and NAD HEENT Reports moist mucous membranes normocephalic and atraumatic Eyes EOMs intact bilaterally and conjunctivae normal General Eye ED: Yes normal appearance of both eyes Neck no lymphadenopathy and supple General: Negative for tenderness Chest Wall Chest: Negative for tenderness Resp normal respiratory effort and normal air movement Effort and Inspection: symmetric chest movement; Negative for respiratory distress Cardio regular rate, regular rhythm and no murmurs Peripheral Pulses: pulses 2+ throughout GI normal to inspection, nondistended, normoactive bowel sounds and non-tender Palpation: Negative for guarding or rebound tenderness present Back/Spine no CVA tenderness and no thoracic nor lumbar tenderness Extremity normal to inspection General Extremety ED: Negative for edema or tenderness General Extremity: Negative for edema Neuro oriented x3 and no sensory deficits noted Sensorium / Orientation: awake and alert Skin no rashes or lesions noted and no wounds MDM MDM MDM Narrative Medical decision making narrative: Interventions / MDM: Differential diagnosis: Atypical chest pain, elevated blood pressure Diagnosis considered but do not suspect: Pulmonary embolism however D-dimer negative with low risk Wells criteria. ACS however EKG and cardiac enzymes negative. No clinical hypertensive emergency findings. My EKG interpretation: Sinus rhythm 92, no ST or T wave changes QTc 452 Imaging independently reviewed and interpreted by myself: N/A External documents reviewed: Reviewed visit from yesterday, reviewed lab work. Normal hemoglobin normal electrolytes and creatinine. Negative urine and chest x-ray. Test considered but not ordered:N/A ED course: Patient reported new palpitations chest heaviness and dyspnea with steps. EKG is normal. Will check cardiac enzymes and a D-dimer for further evaluation. 1210: D-dimer negative, initial troponin 6. Remains chest symptoms free. Chest x-ray yesterday was negative. Do not feel repeat is necessary. Will await delta troponin prior to disposition. 1425: Repeat troponin negative symptom-free on reevaluation. Blood pressure 167/91 in the room. Discussed with patient continue her amlodipine at this time she will keep a log of her blood pressure in the morning when she wakes up then at night before bedtime she will keep a log. She will report to her primary team for adjustments of medications. Discussed with her chest symptoms she may need further workup as an outpatient also. She understands this. All questions were answered. Re-evaluation: stable Disposition discussed with patient/family/significant other: Patient significant other Case discussed with consulting clinician: N/A This note was generated with [employer] dictation software. It may contain incorrect words, spelling, and punctuation that were not noted in checking the note before signing. Lab Data Attestation: I reviewed the patient's lab results. Labs: Laboratory Results - last 24 hr 08/25/24 08/25/24 11:24 13:27 D-Dimer Quant (PE/DVT) < 0.27 L Troponin I High Sens 6 7 Discharge Plan Triage Chief Complaint: Hypertension ED Provider: Moncho Ballard Dx/Rx/DC Orders Clinical Impression: Chest pain, Elevated blood pressure reading in office with diagnosis of hypertension Instructions: ED Chest Pain, Uncertain Cause, ED Hypertension, Established Prescriptions: No Action coenzyme Q10 100 mg capsule 100 mg PO DAILY Mag-C with Bioflavonoids 1,000-200 mg tablet 1 tab PO DAILY ondansetron 4 mg tablet,disintegrating 4 mg PO Q8H PRN (Reason: nausea and vomiting) Qty: 10 0RF dexamethasone [Decadron] 6 mg tablet 6 mg PO DAILY Qty: 9 0RF cyanocobalamin (vitamin B-12) 1,000 mcg/15 mL liquid 1,000 mcg PO DAILY garlic 1,000 mg capsule 1,000 mg PO DAILY multivitamin Tablet 1 tab PO DAILY Primary Care Provider: Kalie Sanches Referrals: Kalie Sanches, [employer] [Primary Care Provider] - Activity Restrictions/Additional Instructions: Your cardiac enzymes EKG normal today. D-dimer negative. Continue amlodipine for blood pressure. Keep a log of your blood pressure when you wake up in the morning then again at night before bedtime. Report results to your doctor for adjustments of medications as needed. Print Language: Moroccan Disposition Disposition: Home, Self Care Discharge Date/Time: 11/07/23 14:50
[2023-11-07 11:43] LABS: D-Dimer Quantitative (DVT/PE) < 0.27 FEU/ug/m (0.27-0.49)
[2023-11-07 11:48] LABS: Troponin-I HS (w/2H Reflex) 6 pg/mL (3.0-54.0)
[2023-11-07 12:39] VITALS: BP 156/84; PULSE 88; RESP 18; O2SAT 96
[2023-11-07 13:26] LABS: Reflex Troponin-HS? (from REC) Y
[2023-11-07 14:00] VITALS: BP 167/100; PULSE 78; RESP 18; O2SAT 98
[2023-11-07 14:08] LABS: Troponin-I HS 7 pg/mL (3.0-54.0)
[2023-11-07 14:38] VITALS: BP 165/92; PULSE 81; RESP 18; TEMP 36.6; O2SAT 96
== END 2023-11-07 14:50 | disposition home or self-care (01) ==
PROVIDERS: Emergency Provider Emergency Medicine; PCP Clinical Nurse Specialist Adult Health; Visit Provider Emergency Medicine
DX: R07.89 Other chest pain (principal); E78.00 Pure hypercholesterolemia, unspecified; I10 Essential (primary) hypertension; Z79.899 Other long term (current) drug therapy; R06.00 Dyspnea, unspecified; R00.2 Palpitations
CPT/HCPCS: 84484; 85379; 93005; 99283; A4216

== ENCOUNTER → 2023-12-30 | Outpatient (CLI) | payer MEDICARE, OTHER, SELFPAY ==
--- NOTE | 2023-12-30 08:46 | RDU_ITS ---
Reason For Study: HTN Right Renal Artery Left Renal Artery Right renal artery ostium Left renal artery ostium 87.6/19.5 151.2/43.7 RSV/EDV. PSV/EDV. Right renal artery proximal Left renal artery proximal PSV/EDV 67.6/22.5 PSV/EDV. 129.3/23.9 . Right renal artery mid 85.1/27.2 Left renal artery mid 155.6/41.5 PSV/EDV. PSV/EDV . Right renal artery distal 86.7/25.6 Left renal artery distal 94.1/32.7 PSV/EDV. PSV/EDV. Right RAR 2.58. Left RAR 2.66. Right Renal Parenchyma Left Renal Parenchyma Upper Pole Medula 42.3/13.8 Left upper pole medulla 33.5/10.2 PSV/EDV. PSV/EDV . Right upper pole medulla EDR 0.30 . Left upper pole medulla EDR 0.30 . Right upper pole medulla R.I. Left upper pole medulla R.I. 0.70 . 0.67 . UP Cortex 18.8/5.9 PSV/EDV. Upper [place] Cortx 25.3/6.4 PSV/EDV. Left upper pole cortex EDR 0.30 . Right upper pole cortex EDR 0.30 . Left upper pole cortex R.I. 0.69 . Right upper pole cortex R.I. 0.75 . Left lower Pole medulla 24.3/10.2 Right lower Pole medulla 24.8/7.8 PSV/EDV . PSV/EDV . Left lower pole medulla EDR 0.40 . Right lower pole medulla EDR 0.30 . Left lower pole medulla R.I. 0.58 . Right lower pole medulla R.I. Lower Pole Cortx 15.7/5.9 PSV/EDV. 0.68 . Left lower pole cortex EDR 0.40 . Lower Pole Cortex 17.8/6.0 PSV/EDV. Left lower pole cortex R.I. 0.62 . Right lower pole cortex EDR 0.30 . Left Renal Hilar Right lower pole cortex R.I. 0.66 . LT Hilar avg 130.8/34.2 PSV/EDV . Right Renal Hilar Left hilar acceleration time 20 Right Hilar avg 71.6/22.0 PSV/EDV. m/sec. Right hilar acceleration time 30 Left Renal Dimensions m/sec. Left kidney size 10.76 cm . Right Renal Dimensions Left cortical dimension 1.44 cm . Right kidney size 10.80 cm . Right cortical dimension 1.47 cm . Aorta Proximal abdominal aorta 2.42 x 2.39 cm . Proximal abdominal aorta peak systolic velocity is 47.8 cm/sec . Distal abdominal aorta 1.52 x 1.85 cm . Distal abdominal aorta peak systolic velocity is 58.5 cm/sec . VL/Renal Artery Duplex Ultrasound Interpretation Summary Renal artery velocities are bilaterally normal. Renal-aortic ratios are also bi laterally normal. Acceleration times are normal bilaterally. There is no evidence of hemodynamica lly significant renal artery stenosis on either side. Renovascular resistance appears to be bilateral ly normal . Cortical dimensions are bilaterally normal. Kidneys appear normal in size bilaterally. Ordering Physician: Melita Linn Referring Physician: Kalie Sanches Performed By: Sergey Pollack RVT
--- NOTE | 2023-12-30 08:46 | ECHOD_ITS ---
Reason For Study: HTN Procedure This was a 2D Doppler, Color Flow transthoracic echocardiogram. Exam performed in department. Left Ventricle Normal size and thickness. The left ventricular ejection fraction is 65 %. Normal diastology for age. Right Ventricle Normal right ventricle. Atria The left and right atria are normal. Mitral Valve Trivial mitral valve insufficiency. Tricuspid Valve Trivial tricuspid valve insufficiency. Normal pulmonary artery pressure. Aortic Valve Trisinus/trileaflet aortic valve. Trivial aortic valve insufficiency. Pulmonic Valve The pulmonic valve is not well visualized. Great Vessels Normal sized aortic root. Pericardium/Pleural No pericardial effusion. MMode/2D Measurements & Calculations LVIDd: 4.0 cm IVSd: 1.1 cm Ao root diam: 3.6 cm LVIDs: 2.6 cm LVPWd: 1.0 cm RVDd: 3.1 cm FS: 33.9 % LAV(MOD-bp): 28.8 ml LVAd ap4: 24.2 cm2 SV(MOD-sp4): 41.2 ml LAV(MOD-bp) Indexed: 15.2 ml/m2 LVLd ap4: 7.5 cm LAV(MOD-sp2): 32.0 ml EDV(MOD-sp4): 64.6 ml LAV(MOD-sp4): 23.9 ml EDV(sp4-el): 66.2 ml LVAs ap4: 13.3 cm2 LVLs ap4: 6.5 cm ESV(MOD-sp4): 23.4 ml ESV(sp4-el): 23.2 ml EF(MOD-sp4): 63.8 % EF(sp4-el): 65.0 % SV(sp4-el): 43.0 ml LA A4 area: 12.4 cm2 LA dimension(2D): 2.6 cm RA A4 area: 10.8 cm2 TAPSE: 1.5 cm Time Measurements MV dec time: 0.32 sec Doppler Measurements & Calculations MV E max efren: 78.2 cm/sec Lat Peak E' Efren: 10.2 cm/sec Med Peak E' Efren: 8.3 cm/sec MV A max efren: 107.5 cm/sec E/E' lat: 7.7 E/E' med: 9.4 MV E/A: 0.73 MV V2 max: 104.1 cm/sec MV P1/2t max efren: 86.7 cm/sec Ao V2 max: 147.4 cm/sec MV max P.3 mmHg MV P1/2t: 108.2 msec Ao max P.7 mmHg MV V2 mean: 63.0 cm/sec Ao V2 mean: 95.3 cm/sec MV mean P.8 mmHg MV dec slope: 234.8 cm/sec2 Ao mean P.3 mmHg MV V2 VTI: 28.9 cm MVA(P1/2t): 2.0 cm2 Ao V2 VTI: 29.1 cm AV (velocity ratio): 0.68 LV V1 max: 104.5 cm/sec PA V2 max: 94.6 cm/sec TR max efren: 243.0 cm/sec LV V1 max P.4 mmHg TR max P.6 mmHg LV V1 mean P.3 mmHg LV V1 mean: 71.8 cm/sec LV V1 VTI: 19.9 cm ECHO/Echo Complete Interpretation Summary The left ventricular ejection fraction is 65 %. Ordering Physician: Melita Linn Referring Physician: Melita Linn Performed By: Willian Hatfield [facility]
== END | disposition home or self-care (01) ==
LOC: CVS 08:44
PROVIDERS: PCP Clinical Nurse Specialist Adult Health; Referring Provider Internal Medicine Cardiovascular Disease; Visit Provider Internal Medicine Cardiovascular Disease
DX: I49.3 Ventricular premature depolarization (principal); I10 Essential (primary) hypertension; I49.1 Atrial premature depolarization; R94.39 Abnormal result of other cardiovascular function study
CPT/HCPCS: 93306; 93788; 93975

== ENCOUNTER → 2024-01-19 | Outpatient (CLI) | payer MEDICARE, OTHER, SELFPAY ==
--- NOTE | 2024-01-19 12:34 | CT_ITS ---
STUDY: CT CHEST WITHOUT CONTRAST REASON FOR EXAM: Female, 73 years old. I10 - Essential (primary) hypertension RADIATION DOSAGE (If Supplied By Facility): CTDIvol = ( 16 ) mGy, DLP = ( 2421.38 ) mGycm TECHNIQUE: Transaxial imaging was performed without the administration of intravenous contrast material. Cardiac orbit examination. Individualized dose optimization techniques were used for this CT. COMPARISON: No relevant priors. FINDINGS: CHEST Minimal degree of increased linear markings at the lung bases suggestive of a linear atelectasis and/or scarring. There is no demonstrated pleural abnormality. Mild degree of the coronary artery calcification. Normal mediastinum. Normal hilar regions. Normal unenhanced pulmonary arteries. There is atherosclerotic calcification of the aortic arch. There are degenerative changes of the thoracic spine. There is no demonstrated abnormality of the visualized upper abdomen. IMPRESSION: Mild degree of coronary artery calcification. Electronically Signed: Cesar Art MD at 14:27 EST , STUDY: CT CHEST WITH CONTRAST REASON FOR EXAM: Female, 73 years old. I10 - Essential (primary) hypertension RADIATION DOSAGE (If Supplied By Facility): CTDIvol = ( 41.92 ) mGy, DLP = ( 2421.38 ) mGycm TECHNIQUE: Transaxial imaging was performed following intravenous administration of 57ML ISOVUE 370. Cardiac over read examination. Individualized dose optimization techniques were used for this CT. COMPARISON: No relevant priors. FINDINGS: CHEST Mild increased linear markings at the lung bases suggestive of linear atelectasis and/or scarring. There is no demonstrated pleural abnormality. Mild degree of coronary artery calcification. Normal mediastinum. Normal hilar regions. Normal unenhanced pulmonary arteries. There is atherosclerotic calcification of the aortic arch with tortuosity and elongation of the aortic arch and descending thoracic aorta. There are degenerative changes of the thoracic spine. Findings infiltration of liver. CT/Limited Chest CT Cardiac Only IMPRESSION: Mild degree of coronary artery calcification. Electronically Signed: Cesar Art MD at 14:28 EST ,
[2024-01-19 13:02] VITALS: BP 148/85; PULSE 66; RESP 16; O2SAT 99; BMI 34.7
[2024-01-19 13:25] VITALS: PULSE 68
[2024-01-19] MEDS: Nitroglycerin SL (ED/IMG/CATH) 0.4 MG TABLET SL (13:25)
[2024-01-19 13:29] LABS: CREATININE FINGERSTICK < 1.0 mg/dL (0.55-1.02); EGFR FINGERSTICK > 60.0000 mL/min (>60)
[2024-01-19 13:31] VITALS: BP 129/64; PULSE 68; RESP 16; O2SAT 98
--- NOTE | 2024-01-23 12:55 | CCTA.WCONT ---
CCTA w/Cont Coronary Arteries Date of Study:: 01/19/24 HTN Coronary Calcium Scoring: High-resolution Computed Tomographic imaging of the chest was performed on [01/19/2024], with particular attention paid to the coronary arteries. Intravenous contrast agent was administered per protocol and images reconstructed and displayed. LEFT MAIN CORONARY ARTERY: Arises from the left coronary cusp with no significant stenosis present. Coronary calcium score 0 [] LEFT ANTERIOR DESCENDING CORONARY ARTERY: This arose from the left main coronary artery. There was minimal atherosclerotic plaquing noted with no high-grade stenosis present. No coronary calcification is noted. [] LEFT CIRCUMFLEX CORONARY ARTERY: This arose from the left main coronary artery and caused in the AV groove with minimal atherosclerotic plaquing noted there is no coronary calcification present. [] RIGHT CORONARY ARTERY: Dominant vessel arising from the right coronary cusp with minimal atherosclerotic plaquing noted with no coronary calcification present. CORONARY CALCIUM SCORE: Total Agatston score is 0 Conclusion: Coronary calcium score 0. Minimal nonocclusive atherosclerotic plaquing noted in the 3 vessels present. []
== END | disposition home or self-care (01) ==
LOC: CT 12:34
PROVIDERS: PCP Clinical Nurse Specialist Adult Health; Referring Provider Internal Medicine Cardiovascular Disease; Visit Provider Internal Medicine Cardiovascular Disease
DX: R06.02 Shortness of breath (principal); I10 Essential (primary) hypertension; R07.2 Precordial pain
CPT/HCPCS: 75571; 75574; 76380; Q9967; A4216